=== PATIENT | female | born 1995 | race Caucasian/White ===

== ENCOUNTER → 2018-02-12 10:27 | Outpatient (POV) | payer BC, SELFPAY | PROVIDERS: Family Provider Internal Medicine Adolescent Medicine; PCP Internal Medicine Adolescent Medicine; Visit Provider Psychiatry & Neurology Neurology | DX: Z00.00 Encounter for general adult medical examination without abnormal findings (principal) ==

== ENCOUNTER → 2019-11-04 16:07 | Outpatient (POV) | payer BC, SELFPAY | PROVIDERS: PCP Internal Medicine Adolescent Medicine; Visit Provider Dermatology | DX: Z00.00 Encounter for general adult medical examination without abnormal findings (principal) ==

== ENCOUNTER 2020-05-16 09:17 | Emergency (ER) | payer BC, SELFPAY ==
[2020-05-16 09:20] VITALS: BP 116/72; PULSE 80; RESP 20; TEMP 37.1; O2SAT 97; BMI 26.1
--- NOTE | 2020-05-16 10:01 | HMH.EDUTC ---
[facility] [place] Clinical Impression: Exposure to COVID-19 virus Disposition: Home, Self-Care Condition on Discharge: Good Instructions: Preventing the Spread of Coronavirus Discharge Instructions Additional Instructions: Drink plenty of fluids. Take tylenol for pain or fever. Return if you begin to have difficulty breathing. Follow up with your regular doctor. GO TO THE ER FOR ANY WORSENING SYMPTOMS Referrals: Dotty Falk APRN [Primary Care Provider] - Time of Disposition: 10:03 Medical Decision Making - Medical Records Medical records reviewed: No: I reviewed the patient's medical records. - Gómez Inquiry Pt receiving controlled substance: No Vital Signs: 05/16/20 09:20 Temperature 98.8 F Temperature Source Oral Pulse Rate [Left Brachial] 80 Respiratory Rate 20 Blood Pressure [Left Arm] 116/72 Blood Pressure Mean [Left Arm] 86 Blood Pressure Source [Left Arm] Automatic Cuff Blood Pressure Position [Left Arm] Sitting 02 Sat by Pulse Oximetry 97 Oxygen Delivery Method Room Air [facility] [place] - General Stated complaint: covid exposure Time Seen by Provider: 05/16/20 10:01 Mode of Arrival: Ambulatory Source of Information: Patient Limitations: No Limitations Description of Symptoms (Recalled from Triage Doc. by RN): COVID TEST D/T EXPOSURE. DENIES SYMPTOMS HEENT Symptoms (Recalled from RN notes): No Resp Symptoms (Recalled from RN notes): No Skin Symptoms (Recalled from RN notes): No MS Symptoms (Recalled from RN notes): No Functional Status (Recalled from RN notes): WNL - History of Present Illness Provider Complaint: She was exposed to covid-[address] last week. She denies any symptoms but her work wanted her to be tested to be safe. - Related Data Home Medications Medication Instructions Recorded Confirmed norgestimate 0.25 mg-ethinyl 1 tab PO DAILY tab 05/21/19 05/21/19 estradiol 35 mcg tablet Allergies Allergy/AdvReac Type Severity Reaction Status Date / Time No Known Allergies Allergy Verified 05/21/19 16:06 - Worker's Comp Is this a Worker's Comp case?: No [facility] History - Hepatitis A Screen Drug use history?: No High risk sexual behaviors?: No History of sexually transmitted infection?: No Currently employed?: No Childcare worker?: No Do you have indoor plumbing?: Yes Do you have electricity?: Yes Attestation statement:: This patient has been screened for Hepatitis A risk factors. I have reviewed the patient's past medical history: Yes Comment: right wrist surgery. Lasix. Dental surgery - 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 Smoking Status: Never smoker Alcohol Intake: never Substance Use Type: denies use Occupational Status: other Housing: house Household Members: significant other Family Hx:: No significant family history ROS Obtained: Yes All systems reviewed & no additional complaints - Constitutional Constitutional: Reports system reviewed and no additional complaints, except as docu - Eyes Eyes: Reports system reviewed and no additional complaints, except as docu - ENT Ears, Nose, Mouth, and Throat: Reports system reviewed and no additional complaints, except as docu - Cardiovascular Cardiovascular: Reports system reviewed and no additional complaints, except as docu - Respiratory Respiratory: Reports system reviewed and no additional complaints, except as docu - Gastrointestinal Gastrointestingal: Reports: system reviewed and no additional complaints, except as docu Physical Exam - General General appearance: alert, in no apparent distress - Head Head exam: atraumatic, normocephalic, normal inspection - Eye Eye exam: Present: normal appearance, PERRL, EOMI - ENT ENT exam: Present: normal exam, normal oropharynx, mucous membranes moist, TM's normal bilaterally, normal external ear exam - Neck Neck exam: Present: normal inspection, full ROM, trachea midline. Absent: meningismus, lymphadenopathy - Chest C
[2020-05-16 10:07] VITALS: BP 116/72; PULSE 80; RESP 20; TEMP 37.1; O2SAT 97
== END 2020-05-16 10:10 | disposition home or self-care (01) ==
PROVIDERS: Emergency Provider Nurse Practitioner Family; PCP Nurse Practitioner Family
DX: Z20.822 Contact with and (suspected) exposure to COVID-19 (principal)
CPT/HCPCS: 99202; G0463; U0003

== ENCOUNTER → 2021-02-28 08:57 | Outpatient (CLI) | payer BC, SELFPAY ==
[2021-02-28 09:40] LABS: HCG,Quantitative 684 mIU/ml (0-5.42)
== END ==
PROVIDERS: Visit Provider Specialist
DX: Z32.00 Encounter for pregnancy test, result unknown (principal)
CPT/HCPCS: 36415; 84702

== ENCOUNTER 2023-03-03 10:03 | Emergency (ER) | payer BC, SELFPAY ==
[2023-03-03 10:15] VITALS: BP 140/80; PULSE 103; RESP 19; TEMP 36.8; O2SAT 96; BMI 28.0
[2023-03-03 10:22] LABS: Apearance,Urine Cloudy (Clear); Color,Urine Dark Yellow (Yellow); Specific Gravity, Urine 1.025 (1.005-1.030)
[2023-03-03 10:23] LABS: Bilirubin,Urine Negative (Negative); Blood, Urine 3+ (Negative); Glucose,Urine (UA) Negative (Negative); Ketones,Urine Negative (Negative); Protein,Urine 3+ (Negative); UTC Leukocyte Esterase,Urine 1+ (Negative); UTC Nitrate,Urine Negative (Negative); Urobilinogen,Urine 1 EU/dl (0.2)
--- NOTE | 2023-03-03 10:34 | EXP.UTC ---
Discharge Plan Disposition Patient Disposition: Home, Self-Care Condition: Good Prescriptions Prescriptions: New cephalexin [cephalexin] 500 mg tablet 500 mg PO BID 7 Days Qty: 14 0RF No Action [id number] 1 mg tablet 1 mg tablet 1 tab PO DAILY Referrals Follow up/Referrals: Cipriano Frias MD [Primary Care Provider] - See instructions Activity Restrictions/Add. Instructions Additional Instructions/Restrictions: Increase fluids, water and not soda or tea. Can drink cranberry juice or cranberry extract. Wipe front to back Wear cotton underwear Empty bladder after intercourse Start antibiotics immediately and make sure you take the full course although you may start to see improvement over the next 48 hours. You can eat yogurt or take probiotics to decrease diarrhea or yeast infection caused by the antibiotic Be sure to follow-up anytime for new or worsening symptoms in 48 hours for wound urine culture results be sure to let you PCP no recent urine for culture so they can request records and ensure that you have appropriate antibiotic if you are not getting better or getting worse. If symptoms worsen or do not improve return or be seen in the ER. Follow-up with primary care this week. Clinical Impressions Clinical Impression: UTI (urinary tract infection) Qualifiers: Urinary tract infection type: acute cystitis Hematuria presence: with hematuria Qualified Code(s): N30.01 - Acute cystitis with hematuria Instructions Patient Instructions: DI for Urinary Tract Infection (UTI) Discharge ED Provider[facility]Tom [facility] HPI General Stated complaint: possible uti Mode of Arrival: Ambulatory Source of Information: Patient Limitations: No Limitations Time Seen by Provider: 03/03/23 10:34 Description of Symptoms (Recalled from Triage Doc. by RN): rightside pain for 3 days, blood in urine HEENT Symptoms (Recalled from RN notes): No Resp Symptoms (Recalled from RN notes): No Skin Symptoms (Recalled from RN notes): No MS Symptoms (Recalled from RN notes): No Functional Status (Recalled from RN notes): n/a History of Present Illness Provider Complaint: 27 yr old female presents for blood in urine and rt lower abd pain for 3 days and was told by ob to come get her urine checked Related Data Home Medications Medication Instructions Recorded Confirmed [id number] 1 mg 1 tab PO DAILY vitamins 05/27/21 03/03/23 tablet Previous Rx's Medication Instructions Recorded cephalexin 500 mg tablet 500 mg PO BID 7 days #14 tabs 03/03/23 Allergies Allergy/AdvReac Type Severity Reaction Status Date / Time No Known Allergies Allergy Verified 03/03/23 10:32 Worker's Comp Is this a Worker's Comp case?: No [facility] Disclaimer: The information contained in this section may have been updated after the patient was seen, as this information can be updated by other users. 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) Smoking Status: Never smoker alcohol intake: never substance use type: denies use current occupational status: other Travel in the last 8 weeks: None household members: significant other housing: house ROS Obtained: Yes All systems reviewed & no additional complaints except as documented Constitutional Constitutional: Reports system reviewed and no additional complaints, except as documented Eyes Eyes: Reports system reviewed and no additional complaints, except as documented ENT Ears, Nose, Mouth, and Throat: Reports system reviewed and no additional complaints, except as documented Cardiovascular Cardiovascular: Reports system reviewed and no additional complaints, except as documented Respiratory Respiratory: Reports system reviewed and no additional complaints, except as documented Gastrointestinal Gastrointestingal: Reports system reviewed and no additional complaints, except as documented Genitourinary
[2023-03-03 10:45] VITALS: BP 140/80; PULSE 103; RESP 18; TEMP 36.8; O2SAT 96
== END 2023-03-03 10:44 | disposition home or self-care (01) ==
PROVIDERS: Emergency Provider Nurse Practitioner Family; PCP Family Medicine
DX: N30.01 Acute cystitis with hematuria (principal); R10.31 Right lower quadrant pain
CPT/HCPCS: 81003; 87086; 99212; 99214; G0463

== ENCOUNTER 2024-01-29 14:12 | Outpatient (CLI) | payer BC, SELFPAY ==
--- NOTE | 2024-01-29 14:18 | US_ITS ---
FINAL REPORT CLINICAL HISTORY: Abd pain-- ruq x sev days COMPARISON: None FINDINGS: Sonographic images of the right upper quadrant were obtained. The pancreas is partially obscured.The liver has an unremarkable appearance. There is a large amount of sludge present in the gallbladder. There is no evidence of biliary ductal dilatation.The common duct measures 3 mm. Images of the right kidney reveal mild hydronephrosis of uncertain chronicity. IMPRESSION: Sludge filled gallbladder without evidence of biliary ductal dilatation. Mild right hydronephrosis of uncertain chronicity. Reviewed, Interpreted and Dictated by Chad Groves MD Transcribed by Florecita Alcantar Authenticated and [facility]
== END 2024-01-29 23:59 | disposition home or self-care (01) ==
LOC: RAD 14:13
PROVIDERS: PCP Internal Medicine; Visit Provider Internal Medicine
DX: R10.9 Unspecified abdominal pain (principal)
CPT/HCPCS: 76705

== ENCOUNTER 2024-01-29 14:24 | Outpatient (CLI) | payer BC, SELFPAY ==
[2024-01-29 15:07] LABS: Alanine Aminotransferase 47 U/L (12-78); Albumin Level 4.6 g/dl (3.5-5.0); Albumin/Globulin Ratio 2.3 (1.1-1.8); Alkaline Phosphatase 66 U/L (38-126); Amylase 93 U/L (30-110); Anion Gap 8.8 mEq/L (5-15); Aspartate Amino Transferase 52 U/L (14-36); Bilirubin,Total 0.9 mg/dl (0.2-1.3); Blood Urea Nitrogen 16 mg/dl (7-17); Calcium 9.4 mg/dl (8.4-10.2); Carbon Dioxide 28 mmol/L (22.0-30.0); Chloride 102 mmol/L (98-107); Estimated Glomerular Filt Rate 87 ml/min (>60); GFR (African American) 105 ML/MIN (>60); Glucose 90 mg/dl (74-100); Lipase 428 U/L (23-300); Potassium 3.8 mmoL/L (3.5-5.1); Sodium 135 mmol/L (136-145); Total Protein,Serum 6.6 g/dl (6.3-8.2)
== END 2024-01-29 23:59 | disposition home or self-care (01) ==
LOC: LAB.DROPOF 14:25
PROVIDERS: PCP Internal Medicine; Visit Provider Internal Medicine
DX: Z00.00 Encounter for general adult medical examination without abnormal findings (principal); R10.9 Unspecified abdominal pain
CPT/HCPCS: 80053; 82150; 83690

== ENCOUNTER 2024-02-15 09:59 | Outpatient (CLI) | payer BC, SELFPAY ==
--- NOTE | 2024-02-15 10:00 | NM_ITS ---
FINAL REPORT TECHNIQUE: 8.9 mCi technetium 99 M. Rj attack were administered intravenously. Examination was augmented with 1.3 mcg of CCK. CLINICAL HISTORY: Right upper quadrant pain and nausea after eating FINDINGS: Sequential grayscale images demonstrate a normal bowel distribution of radiopharmaceutical within the liver. There is progressive accumulation of activity within the gallbladder. After CCK administration, calculated ejection fraction was 67%. Patient experienced mild discomfort with CCK administration. IMPRESSION: 1. Proper filling and function of gallbladder, as described. Authenticated and [facility]
[2024-02-15] MEDS: SODIUM CHLORIDE 0.9% 10ML SYR (RAD ONLY) 10 ML IV (10:30)
[2024-02-15] MEDS: SINCALIDE 1.3 MCG in 0.9 % SODIUM CHLORIDE 50 ML 100 MCG IV (11:30)
[2024-02-15] MEDS: ISOTOPE CHOLETECH;1 DOSE (UP TO 15 MCI) IV (11:50)
== END 2024-02-15 23:59 | disposition home or self-care (01) ==
PROVIDERS: PCP Internal Medicine; Visit Provider Nurse Practitioner Family
DX: R10.11 Right upper quadrant pain (principal); R11.0 Nausea
CPT/HCPCS: 78227; A9537; J2805

== ENCOUNTER 2025-01-15 14:26 | Outpatient (CLI) | payer OTHER, SELFPAY ==
--- OUTSIDE RECORDS SUMMARY | 2021-06-24 14:16 | XMS_ITS | Encounter Summary ---
Author Organization [facility] Address [address] [place] [id number] Care Team Providers Care Enrichment Director Name Role Phone Dotty Falk APRN Primary Care Provid er Reason for Referral * Diagnostic Imaging (Routine) - Closed Specialty Diagnoses / Procedures Referred By Contac t Referred To Contact Radiology Diagnoses Encounter for supervision of normal first in second trimester Procedures US Ob 14 + Weeks Single or First Gestation Osiris Alicia MD [address] [place] [address] Phone: tel: fax: [facility] Phone: tel: Referral ID Status Reason Start Date Expiration Date Visits Re quested Visits Authorized [id number] Closed 06/07/2021 06/07/2022 1 1 Reason for Visit * Diagnostic Imaging (Routine) - Closed Specialty Diagnoses / Procedures Referred By Contac t Referred To Contact Radiology Diagnoses Encounter for supervision of normal first in second trimester Procedures US Ob 14 + Weeks Single or First Gestation Osiris Alicia MD [address] [address] Phone: tel: fax: [facility] Phone: tel: Referral ID Status Reason Start Date Expiration Date Visits Re quested Visits Authorized [id number] Closed 06/07/2021 06/07/2022 1 1 Encounter Details Date Type Department Care Team (Latest Contact Info) Description 06/24/2021 1:16 PM EST Hospital Encounter NERY GRANGER [facility] [place] [phone] Encounter for supervision of normal first in second trimester 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 Tobacco Use Types Packs/Day Years Used Date Smoking Tobacco: Never Smokeless Tobacco: Never Alcohol Use Standard Drinks/Week Comments Not Currently 0 (1 standard drink = 0.6 oz pure alcohol) No alcohol since start of meds in June 2020 [facility] Utilities Answer Date Recorded In the past [...] things needed for daily living? No 04/05/2023 [place] Depression Scale Answer Date Recorded Retired [place] Depression Score 5 04/05/2023 Retired EPD Scale: [...] GED or equivalent No 04/05/2023 Preferred Language Solomon Islander 04/05/2023 PHQ-2 Answer Date Recorded Retired PHQ-9: [...] Description 05/21/2025 1:50 PM EST Office Visit [facility]YN [address] [facility] [address] [place] [address] Osiris Alicia MD [address]00 [facility] [address] [place], [place] [id number] documented as of this encounter Procedures Procedure [...] EST PAT NAME: RASTA ARBOLEDA MED REC#: [id number] DA: [id number] PAT GEND: F PAT TYPE: O EXAM AMPARO: [id number] REF PHYS OSIRIS ALICIA Indication ======== anatomy [...] EFW (oz) 15 oz EFW by: Hadlock ([id number]) Extended Histology Tech 5.6 mm CM 4.2 mm 17% Nicolaides [...] Heart / Thorax 3-vessel view: Appears normal 6-mydqwi-acfaouq view: Appears normal Diaphragm: Appears normal Diaphragm: [...] subsequent visit to complete the anatomic screening Appraisal Coordinator: Sara Ortez RDMS Physician: Osiris Alicia MD Electronically signed by: Osiris Alicia MD at: 08:30 Procedure Note Osiris Alicia MD - 06/26/2021 PAT NAME: RASTA ARBOLEDA MED REC#: [id number] DA: [id number] PAT GEND: F PAT TYPE: O EXAM AMPARO: [id number] REF PHYS OSIRIS ALICIA Indication ======== anatomy survey Comparison Studies There are no relevant prior studies to which this study is beingcompared Method ======= Voluson E6, Transabdominal ultrasound examination. View: Sufficient view ========= Elena . Number of fetuses: 1 Dating ====== Method of dating:based on stated EMANUEL GA by prior [id number] w + 1 d EMANUEL by prior [...] 21w 2d 44% Hadlock HC / AC1.24 VJL208 g EFW (lb)0 lb EFW (oz)15 oz EFW by:Hadlock ([id number]) Extended Vp5.6 mm CM4.2 mm 17% Nicolaides Extremities / Bony Struc FL / BPD0.67 FL / HC0.18 FL / AC0.22 Other Structures [id number] bpm Anatomy Cranium:Appears normal Lateral ventricles:Appears normal Choroid plexus:Appears normal Midline falx:Appears normal Cavum septi pellucidi:Appears normal Cerebellum:Appears normal Cisterna magna:Appears normal Lips:Appear normal Profile:Appears normal Nose:Appears normal 4-chamber view:Appears normal RVOT view:Appears normal LVOT view:Appears normal Heart / Thorax 3-vessel view:Appears normal 4-ppgjyq-qqdpide view:Appears normal Diaphragm:Appears normal Diaphragm:Intact Cord insertion:Appears [...] a subsequent visit tocomplete the anatomic screening Appraisal Coordinator: Sara Ortez RDMS Physician: Osiris Alicia MD [...] documented as of this encounter Care Teams Enrichment Director Relationship Specialty Start Date End Date Dotty Falk APRN [address] [place] [facility] [address] [facility] [place] [address] PCP - General Family Medicine 10/13/16 07/25/22 documented as of this encounter
--- OUTSIDE RECORDS SUMMARY | 2021-07-22 08:27 | XMS_ITS | Encounter Summary ---
Author Organization [facility] Address [address] [place] [id number] Care Team Providers Care Student Services Dean Name Role Phone Dotty Falk APRN Primary Care Provid er Reason for Referral * Diagnostic Imaging (Routine) - Closed Specialty Diagnoses / Procedures Referred By Contac t Referred To Contact Radiology Diagnoses Encounter for supervision of normal first in second trimester Procedures US Ob Follow Up Transabdominal Approach Osiris Alicia MD [address] [place] [address] Phone: tel: fax: [facility] Phone: tel: Referral ID Status Reason Start Date Expiration Date Visits Re quested Visits Authorized [id number] Closed 06/24/2021 06/24/2022 1 1 Reason for Visit * Diagnostic Imaging (Routine) - Closed Specialty Diagnoses / Procedures Referred By Contac t Referred To Contact Radiology Diagnoses Encounter for supervision of normal first in second trimester Procedures US Ob Follow Up Transabdominal Approach Osiris Alicia MD [address] [place] [address] Phone: tel: fax: [facility] Phone: tel: Referral ID Status Reason Start Date Expiration Date Visits Re quested Visits Authorized [id number] Closed 06/24/2021 06/24/2022 1 1 Encounter Details Date Type Department Care Team (Latest Contact Info) Description 07/22/2021 8:27 AM EDT Hospital Encounter NERY GRANGER [facility] [place] [phone] Encounter for supervision of normal first in second trimester 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 Tobacco Use Types Packs/Day Years Used Date Smoking Tobacco: Never Smokeless Tobacco: Never Alcohol Use Standard Drinks/Week Comments Not Currently 0 (1 standard drink = 0.6 oz pure alcohol) No alcohol since start of meds in June 2020 [facility] Utilities Answer Date Recorded In the past [...] things needed for daily living? No 04/05/2023 [place] Depression Scale Answer Date Recorded Retired [place] Depression Score 5 04/05/2023 Retired EPD Scale: [...] GED or equivalent No 04/05/2023 Preferred Language Trinidadian 04/05/2023 PHQ-2 Answer Date Recorded Retired PHQ-9: [...] Description 05/21/2025 1:50 PM EST Office Visit [facility] [address] [facility] [address] [place] [address] Osiris Alicia MD [address] [facility] [address] [place] [address] documented as of this encounter Procedures Procedure [...] EDT PAT NAME: RASTA ARBOLEDA MED REC#: [id number] DA: [id number] PAT GEND: F PAT TYPE: O EXAM WILNER: [id number] REF PHYS OSIRIS ALICIA Indication ======== Follow-up [...] GA 25 w + 1 d Assigned EMAUNEL: 11/03/2021 length 280 d General Evaluation Cardiac [...] complete. Recommendation Follow-up scan as clinically indicated Checkout Operator: Aline Russell RDMS Physician: Osiris Alicia MD Electronically signed by: Osiris Alicia MD at: 18:15 Procedure Note Osiris Alicia MD - 07/22/2021 PAT NAME: GRAHAM ARBOLEDAA [facility] REC#: [id number] DA: [id number] PAT GEND: F PAT TYPE: O EXAM WILNER: [id number] REF PHYS OSIRIS ALICIA Indication ======== Follow-up [...] GA25 w + 1 d Assigned EMANUEL:11/03/2021 [id number] d General Evaluation Cardiac activity present. FHR [...] complete. Recommendation Follow-up scan as clinically indicated Checkout Operator: Aline Russell RDMS Physician: Osiris Alicia MD [...] documented as of this encounter Care Teams Student Services Dean Relationship Specialty Start Date End Date Dotty Falk APRN [address] [place] [address] [place] [address] [place] [address] PCP - General Family Medicine 10/13/16 07/25/22 documented as of this encounter
--- OUTSIDE RECORDS SUMMARY | 2022-09-04 09:26 | XMS_ITS | Encounter Summary ---
Author Organization [facility] Address [address] [place] [id number] Care Team Providers Care Paper Sorter And Counter Name Role Phone Cipriano Frias MD Primary Care Provider [phone] Reason for Referral * Diagnostic Imaging (Routine) - Closed Specialty Diagnoses / Procedures Referred By Contac t Referred To Contact Radiology Diagnoses Encounter to determine viability of , single or unspecified fetus Procedures US OB Transvaginal Osiris Alicia MD [address] [place] [address] Phone: tel: fax: [facility] Phone: tel: Referral ID Status Reason Start Date Expiration Date Visits Re quested Visits Authorized [id number] Closed 08/30/2022 08/30/2023 1 1 Reason for Visit * Diagnostic Imaging (Routine) - Closed Specialty Diagnoses / Procedures Referred By Contac t Referred To Contact Radiology Diagnoses Encounter to determine viability of , single or unspecified fetus Procedures US OB Transvaginal Osiris Alicia MD [address] [facility] [place] [address] Phone: tel: fax: [facility] Phone: tel: Referral ID Status Reason Start Date Expiration Date Visits Re quested Visits Authorized [id number] Closed 08/30/2022 08/30/2023 1 1 Encounter Details Date Type Department Care Team (Latest Contact Info) Description 09/04/2022 9:26 AM EDT Hospital Encounter [facility] [place] [phone] Encounter to determine viability of , single or unspecified fetus 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 Tobacco Use Types Packs/Day Years Used Date Smoking Tobacco: Never Smokeless Tobacco: Never Alcohol Use Standard Drinks/Week Comments Not Currently 0 (1 standard drink = 0.6 oz pure alcohol) No alcohol since start of meds in June 2020 [facility] Utilities Answer Date Recorded In the past 12 months has th e [employer], gas, oil, or water [employer] threatened to shut off services in your [...] things needed for daily living? No 04/05/2023 [place] Depression Scale Answer Date Recorded Retired [place] Depression Score 5 04/05/2023 Retired EPD Scale: [...] GED or equivalent No 04/05/2023 Preferred Language Kuwaiti 04/05/2023 PHQ-2 Answer Date Recorded Retired PHQ-9: [...] Description 05/21/2025 1:50 PM EST Office Visit [facility] [address] [facility] [address] [place] [phone] Osiris Alicia MD [address] [address] documented as of this encounter Procedures Procedure Name Priority Date/Time Associated Diagnosis Comments US OB TRANSVAGINAL Routine 09/04/2022 9: 44 AM EDT Encounter to determine viability of , single or unspecified fetus documented in this encounter Results * US Ob Transvaginal (09/04/2022 9:44 AM EDT) Anatomical Region Laterality Modality Body Ultrasound 09/04/2022 9:31 AM EDT Narrative 09/05/2022 7:29 AM EDT PAT NAME: RASTA ARBOLEDA MED REC#: [id number] DA: [id number] PAT GEND: F PAT TYPE: O EXAM WILNER: [id number] REF PHYS OSIRIS ALICIA Indication ======== viability Comparison Studies There are no relevant prior studies to which this study is being compared History ====== Previous Outcomes 2 Para 1 Method ======= Transvaginal ultrasound examination, Voluson E6. View: Adequate view ========= Elena . Number of fetuses: 1 Single intrauterine present Dating ====== Method of dating: based on the LMP LMP on: 07/05/2022 GA by LMP 8 w + 5 d EMANUEL by LMP: 04/11/2023 Ultrasound examination on: 09/04/2022 GA by U/S based upon: CRL GA by U/S 8 w + 2 d EMANUEL by U/S: 04/14/2023 Assigned: based on the LMP, selected on 09/04/2022 Assigned GA 8 w + 5 d Assigned EMANUEL: 04/11/2023 length 280 d Assessment Gestational sac: visualized Location: intrauterine Yolk sac: visualized Embryo: visualized CRL 18.0 mm 8w 2d 16% Hadlock Cardiac activity: present FHR 161 bpm Placenta: Too early to evaluate Maternal Structures Uterus / Cervix Uterus: Visualized Cervix: Visualized Ovaries / Tubes / Adnexa Rt ovary: Visualized Lt ovary: Visualized Lt ovarian corpus luteum: a well circumscribed unilocular cyst with peripheral Doppler flow is present - typical of a corpus luteum Impression ========= Single viable intrauterine with normal cardiac activity and biometry consistent with clinical dates Recommendation Follow-up as clinically indicated. Cosmetic Assembler: Aline Russell RDMS Physician: Osiris Alicia MD Electronically signed by: Osiris Alicia MD at: 07:29 Procedure Note Osiris Alicia MD - 09/05/2022 PAT NAME: RASTA ARBOLEDA MED REC#: [id number] DA: [id number] PAT GEND: F PAT TYPE: O EXAM WILNER: [id number] REF PHYS OSIRIS ALICIA Indication ======== viability Comparison Studies There are no relevant prior studies to which this study is beingcompared History ====== Previous Outcomes Gravida2 Para1 Method ======= Transvaginal ultrasound examination, Voluson E6. View: Adequate view ========= Elena . Number of fetuses: 1 Single intrauterine present Dating ====== Method of dating:based on the LMP LMP on:07/05/2022 GA by LMP8 w + 5 d EMANUEL by LMP:04/11/2023 Ultrasound examination on:09/04/2022 GA by U/S based upon:CRL GA by U/S8 w + 2 d EMANUEL by U/S:04/14/2023 Assigned:based on the LMP, selected on 09/04/2022 Assigned GA8 w + 5 d Assigned EMANUEL:04/11/2023 d Assessment Gestational sac:visualized Location:intrauterine Yolk sac:visualized Embryo:visualized CRL18.0 mm 8w 2d 16% Hadlock Cardiac activity:present SWP238 bpm Placenta:Too early to evaluate Maternal Structures Uterus / Cervix Uterus:Visualized Cervix:Visualized Ovaries / Tubes / Adnexa Rt ovary:Visualized Lt ovary:Visualized Lt ovarian corpus luteum:a well circumscribed unilocular cyst withperipheral Doppler flow is present - typical of a corpus luteum Impression ========= Single viable intrauterine with normal cardiac activity andbiometry consistent with clinical dates Recommendation Follow-up as clinically indicated. Cosmetic Assembler: Aline Russell RDMS Physician: Osiris Alicia MD Electronically signed by: Osiris Alicia MD at: 07:29 us Osiris Alicia MD IMG US ORDERABLES Final Re sult documented in this encounter Visit Diagnoses Diagnosis Encounter to determine viability of , single or unspecified fetus documented in this encounter Care Teams Paper Sorter And Counter Relationship Specialty Start Date End Date Cipriano Frias MD [address] [place] [address] PCP - General Family Medicine 07/26/22 02/03/24 documented as of this encounter
--- OUTSIDE RECORDS SUMMARY | 2022-11-23 13:21 | XMS_ITS | Encounter Summary ---
Author Organization [facility] Address [address] [place] [address] Care Team Providers Care Push Bench Operator Helper Name Role Phone Cipriano Frias MD Primary Care Provider [phone] Reason for Referral * Diagnostic Imaging (Routine) - Closed Specialty Diagnoses / Procedures Referred By Contac t Referred To Contact Radiology Diagnoses 16 weeks gestation of Procedures US Ob 14 + Weeks Single or First Gestation Eren Sauceda CNM [address] [place] [address] Phone: tel: fax: [facility] Phone: tel: Referral ID Status Reason Start Date Expiration Date Visits Re quested Visits Authorized [id number] Closed 10/26/2022 10/26/2023 1 1 Reason for Visit * Diagnostic Imaging (Routine) - Closed Specialty Diagnoses / Procedures Referred By Contac t Referred To Contact Radiology Diagnoses 16 weeks gestation of Procedures US Ob 14 + Weeks Single or First Gestation Eren Sauceda CNM [address] [facility] [address] [place], [place] [address] Phone: tel: fax: [facility] Phone: tel: Referral ID Status Reason Start Date Expiration Date Visits Re quested Visits Authorized [id number] Closed 10/26/2022 10/26/2023 1 1 Encounter Details Date Type Department Care Team (Latest Contact Info) Description 11/23/2022 1:21 PM EDT Hospital Encounter [facility] [place] [phone] 16 weeks gestation of 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 Tobacco Use Types Packs/Day Years Used Date Smoking Tobacco: Never Smokeless Tobacco: Never Alcohol Use Standard Drinks/Week Comments Not Currently 0 (1 standard drink = 0.6 oz pure alcohol) No alcohol since start of meds in June 2020 [facility] Utilities Answer Date Recorded In the past 12 months has th e [employer], gas, oil, or water [employer] threatened to shut off services in your [...] things needed for daily living? No 04/05/2023 [place] Depression Scale Answer Date Recorded Retired [place] Depression Score 5 04/05/2023 Retired EPD Scale: [...] GED or equivalent No 04/05/2023 Preferred Language Vietnamese 04/05/2023 PHQ-2 Answer Date Recorded Retired PHQ-9: [...] Description 05/21/2025 1:50 PM EST Office Visit [facility] OBGYN [address] [facility] [address] [place] [address] [phone] Toro Valdez MD [address] [facility] [address] [place] [address] documented as of this encounter Procedures Procedure [...] EDT PAT NAME: RASTA ARBOLEDA MED REC#: [id number] DA: [id number] PAT GEND: F PAT TYPE: O EXAM AMPARO: [id number] REF PHYS EREN SAUCEDA Indication ======== anatomy [...] EFW (oz) 10 oz EFW by: Hadlock ([id number]-TZ-HO-FL) Head / Face / Neck Cephalic index [...] Heart / Thorax 3-vessel view: Appears normal 4-qequnl-ueesebo view: Appears normal Diaphragm: Appears normal Diaphragm: [...] subsequent visit to complete the anatomic screening. Supervisor Detasseling Crew: Vida Posadas RDMA Physician: Toro Valdez MD Electronically signed by: Toro Valdez MD at: 09:41 Procedure Note Toro Valdez MD - 11/24/2022 PAT NAME: ARBOLEDARASTA MED REC#: [id number] DA: [id number] PAT GEND: F PAT TYPE: O EXAM AMPARO: [id number] REF PHYS EREN SAUCEDA Indication ======== anatomy survey Comparison Studies There are no relevant prior studies to which this study is beingcompared History ====== Previous Outcomes Gravida2 Para1 Method ======= Voluson E6, Transabdominal ultrasound examination. View: Sufficient view ========= Elena . Number of fetuses: 1 Dating ====== LMP on:07/05/2022 GA by LMP20 w + 1 d EMANUEL by LMP:04/11/2023 GA by prior [email or web address] w + 1 d EMANUEL by prior [...] GA20 w + 1 d Assigned EMANUEL:04/11/2023 [email or web address] d General Evaluation Cardiac activity present. FHR [...] 10% Hadlock HC / AC1.18 62% Hadlock ASW878 g EFW (lb)0 lb EFW (oz)10 oz EFW by:Hadlock (JOA-VH-CD-FL) Head / Face / Neck Cephalic index0.70 <1% Nicolaides Extremities / Bony Struc FL / BPD0.69 37% Hadlock FL / HC0.18 24% Hadlock FL / AC0.21 22% Hadlock Other Structures BQN264 bpm Anatomy Cranium:Appears normal Lateral ventricles:Appears normal Choroid plexus:Appears normal Midline falx:Appears normal Cavum septi pellucidi:Appears normal Cerebellum:Appears normal Cisterna magna:Appears normal Lips:Appear normal Profile:Appears normal Nose:Appears normal 4-chamber view:Appears normal RVOT view:Appears normal LVOT view:Appears normal Heart / Thorax 3-vessel view:Appears normal 2-rwqeva-hapwqva view:Appears normal Diaphragm:Appears normal Diaphragm:Intact Cord insertion:Appears [...] a subsequent visit tocomplete the anatomic screening. Supervisor Detasseling Crew: Vida Posadas RDMS Physician: Toro Valdez MD Electronically signed by: Toro Valdez MD at: 09:41 Eren Sauceda [facility] US ORDERABLES Final Resul t documented in this encounter Visit Diagnoses Diagnosis 16 weeks gestation of documented in this encounter Care Teams Push Bench Operator Helper Relationship Specialty Start Date End Date Cipriano Frias MD [address] [place] [phone] PCP - General Family Medicine 07/26/22 02/03/24 documented as of this encounter
--- OUTSIDE RECORDS SUMMARY | 2022-12-21 11:43 | XMS_ITS | Encounter Summary ---
Author Organization [facility] Address [address] [place] [address] Care Team Providers Care Crystalizer Name Role Phone Cipriano Frias MD Primary Care Provider [phone] Reason for Referral * Diagnostic Imaging (Routine) - Closed Specialty Diagnoses / Procedures Referred By Contac t Referred To Contact Radiology Diagnoses care, subsequent in second trimester Procedures US Ob Follow Up Transabdominal Approach Osiris Alicia MD [address] [place] [address] Phone: tel: fax: Referral ID Status Reason Start Date Expiration Date Visits Re quested Visits Authorized [id number] Closed 11/23/2022 11/23/2023 1 1 Reason for Visit * Diagnostic Imaging (Routine) - Closed Specialty Diagnoses / Procedures Referred By Contac t Referred To Contact Radiology Diagnoses care, subsequent in second trimester Procedures US Ob Follow Up Transabdominal Approach Osiris Alicia MD [address] [place] [address] Phone: tel: fax: Referral ID Status Reason Start Date Expiration Date Visits Re quested Visits Authorized [id number] Closed 11/23/2022 11/23/2023 1 1 Encounter Details Date Type Department Care Team (Latest Contact Info) Description 12/21/2022 11:43 AM EDT Hospital Encounter [facility] [phone] care, subsequent in second trimester 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 Tobacco Use Types Packs/Day Years Used Date Smoking Tobacco: Never Smokeless Tobacco: Never Alcohol Use Standard Drinks/Week Comments Not Currently 0 (1 standard drink = 0.6 oz pure alcohol) No alcohol since start of meds in June 2020 [facility] Utilities Answer Date Recorded In the [...] things needed for daily living? No 04/05/2023 [place] Depression Scale Answer Date Recorded Retired [place] Depression Score 5 04/05/2023 Retired EPD Scale: [...] GED or equivalent No 04/05/2023 Preferred Language Emirati 04/05/2023 PHQ-2 Answer Date Recorded Retired PHQ-9: [...] Description 05/21/2025 1:50 PM EST Office Visit [facility]YN [address] [facility] [address] [place] [address] Osiris Alicia MD [address] [facility] [address] [place] [phone] documented as of this encounter Procedures Procedure Name Priority Date/Time Associated Diagnosis Comments US OB FOLLOW UP TRANSABDOMINAL APPROACH Routine 12/21/2022 12:02 PM EDT care, subsequent in second trimester documented in this encounter Results * US Ob Follow Up Transabdominal Approach (12/21/2022 12:02 PM EDT) Anatomical Region Laterality Modality Body Ultrasound 12/21/2022 11:5 4 AM EDT Narrative 12/22/2022 7:16 AM EDT PAT NAME: RASTA LUJAN MED REC#: [id number] DA: [id number] PAT GEND: F PAT TYPE: O EXAM AMPARO: [id number] REF PHYS OSIRIS ALICIA Indication ======== Follow-up evaluation for anatomy scan due to position Comparison Studies There are no relevant prior studies to which this study is being compared History ====== Previous Outcomes 2 Para 1 Method ======= Voluson E6, Transabdominal ultrasound examination. View: Adequate view ========= Elena . Number of fetuses: 1 Dating ====== LMP on: 07/05/2022 GA by LMP 24 w + 1 d EMANUEL by LMP: 04/11/2023 Method of dating: Restore dating from previous exam Previous dating: based on the LMP, selected on 09/04/2022 Agreed EMANUEL of previous datin04/11/2023 Assigned: based on the LMP, selected on 09/04/2022 Assigned GA 24 w + 1 d Assigned EMANUEL: 04/11/2023 length 280 d General Evaluation Cardiac activity present. FHR 145 bpm. movements visualized. Presentation transverse. Placenta Placental site: anterior. Amniotic fluid Amount of AF: normal. Anatomy Lateral ventricles: Appears normal 4-chamber view: Appears normal Stomach: Appears normal Kidneys: Appears normal Bladder: Appears normal Cervical spine: Appears normal Thoracic spine: Appears normal Lumbar spine: Appears normal Sacral spine: Appears normal Gender: male Wants to know gender: yes Impression ========= No structural abnormalities are seen on today's scan. Anatomic survey is now complete. Recommendation Follow-up scan as clinically indicated. Content Curator: Aline Russell RDMS Physician: Osiris Alicia MD Electronically signed by: Osiris Alicia MD at: 07:16 Procedure Note Osiris Alicia MD - 12/22/2022 PAT NAME: RASTA LUJAN MED REC#: [id number] DA: [id number] PAT GEND: F PAT TYPE: O EXAM AMPARO: [id number] REF PHYS OSIRIS ALICIA Indication ======== Follow-up evaluation for anatomy scan due to position Comparison Studies There are no relevant prior studies to which this study is beingcompared History ====== Previous Outcomes Gravida2 Para1 Method ======= Voluson E6, Transabdominal ultrasound examination. View: Adequate view ========= Elena . Number of fetuses: 1 Dating ====== LMP on:07/05/2022 GA by LMP24 w + 1 d EMANUEL by LMP:04/11/2023 Method of dating:Restore dating from previous exam Previous dating:based on the LMP, selected on 09/04/2022 Agreed EMANUEL of previous datin04/11/2023 Assigned:based on the LMP, selected on 09/04/2022 Assigned GA24 w + 1 d Assigned EMANUEL:04/11/2023 [id number] d General Evaluation Cardiac activity present. FHR 145 bpm. movements visualized. Presentation transverse. Placenta Placental site: anterior. Amniotic fluid Amount of AF: normal. Anatomy Lateral ventricles:Appears normal 4-chamber view:Appears normal Stomach:Appears normal Kidneys:Appears normal Bladder:Appears normal Cervical spine:Appears normal Thoracic spine:Appears normal Lumbar spine:Appears normal Sacral spine:Appears normal Gender:male Wants to know gender:yes Impression ========= No structural abnormalities are seen on today's scan. Anatomicsurvey is now complete. Recommendation Follow-up scan as clinically indicated. Content Curator: Aline Russell RDKY Physician: Osiris Alicia MD Electronically signed by: Osiris Alicia MD at: 07:16 us Osiris Alicia MD IMG US ORDERABLES Final Re sult documented in this encounter Visit Diagnoses Diagnosis care, subsequent in second trimester documented in this encounter Care Teams Crystalizer Relationship Specialty Start Date End Date Cipriano Frias MD [address] [place] [address] PCP - General Family Medicine 07/26/22 02/03/24 documented as of this encounter
--- OUTSIDE RECORDS SUMMARY | 2024-09-29 11:18 | XMS_ITS | Encounter Summary ---
[facility] [address] [place] [address] Care Team Providers Care Repairer General Name Role Phone Vignesh Strickland DO Primary Care Provider + Reason for Referral * Diagnostic Imaging (Routine) - Closed Specialty Diagnoses / Procedures Referred By Contact Referred To Contact Obstetrics and Gynecology Diagnoses Bloating Procedures US Non-ob Transvaginal Osiris Alicia MD [address] [place] [address] Phone: tel: fax: [facility] O[facility]YN [address] [address] Phone: tel: fax: Referral ID Status Reason Start Date Expiration Date Visits Re quested Visits Authorized [id number] Closed 09/23/2024 12/23/2025 1 1 Reason for Visit * Diagnostic Imaging (Routine) - Closed Specialty Diagnoses / Procedures Referred By Contact Referred To Contact Obstetrics and Gynecology Diagnoses Bloating Procedures US Non-ob Transvaginal Osiris Alicia MD [address] [place] [address] Phone: tel: fax: [facility] O[facility] [address] [address] Phone: tel: fax: Referral ID Status Reason Start Date Expiration Date Visits Re quested Visits Authorized [id number] Closed 09/23/2024 12/23/2025 1 1 Encounter Details Date Type Department Care Team (Mira kelly Contact Info) Description 09/29/2024 11:18 AM EDT Hospital Encounter [facility] [place] [phone] Bloating 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 Tobacco Use Types Packs/Day Years Used Date Smoking Tobacco: Never Smokeless Tobacco: Never Alcohol Use Standard Drinks/Week Comments Not Currently 0 (1 standard drink = 0.6 oz pure alcohol) No alcohol since start of meds in June 2020 [facility] Utilities Answer Date Recorded In the [...] things needed for daily living? No 04/05/2023 [place] Depression Scale Answer Date Recorded Retired [place] Depression Score 5 04/05/2023 Retired EPD Scale: [...] GED or equivalent No 04/05/2023 Preferred Language Saudi Arabian 04/05/2023 PHQ-2 Answer Date Recorded Retired PHQ-9: [...] 05/21/2025 1:50 PM EST Office Visit [facility] [address] [facility] [address] [place] [address] Osiris Alicia MD [address] [facility] [address] [place] [address] documented as of this encounter Procedures Procedure Name Priority Date/Time Associated Diagnosis Comments US NON-OB TRANSVAGINAL Routine 09/29/2024 11:58 AM EDT Bloating documented in this encounter Results * US Non-ob Transvaginal (09/29/2024 11:58 AM EDT) Anatomical Region Laterality Modality Body Ultrasound 09/29/2024 11:4 9 AM EDT Narrative 10/02/2024 1:12 PM EDT PAT NAME: RASTA ARBOLEDA MED REC#: [id number] DA: [id number] PAT GEND: F PAT TYPE: O EXAM AMPARO: [id number] REF PHYS OSIRIS ALICIA Indication ======== Bloating [...] pelvic ultrasound Recommendation Follow-up as clinically indicated. Pediatric Radiologist: Vida Posadas RDMS Physician: Osiris Alicia MD Electronically signed by: Osiris Alicia MD at: 13:12 Procedure Note Osiris Alicia MD - 10/02/2024 PAT NAME: RASTA ARBOLEDA MED REC#: [id number] DA: [id number] PAT GEND: F PAT TYPE: O EXAM AMPARO: [id number] REF PHYS OSIRIS ALICIA Indication ======== Bloating [...] Vol45.4 cm Endometrial thickness, total3.2 mm Cervical ebkdle91.0 mm Right Ovary Rt ovary:Normal Rt ovary D134.7 mm Rt ovary D215.9 mm Rt ovary D314.5 mm Rt ovary Vol4.2 cm Left Ovary ========= Lt ovary:Normal Lt ovary D138.0 mm Lt ovary D216.4 mm Lt ovary D320.00 mm Lt ovary Vol6.5 cm Cul de Sac ========= Visualized. Free fluid visualized: mild Impression ========= Normal pelvic ultrasound Recommendation Follow-up as clinically indicated. Pediatric Radiologist: Vida Posadas RDMS Physician: Osiris Alicia MD Electronically signed by: Osiris Alicia MD at: 13:12 us Osiris Alicia MD IMG US ORDERABLES Final Re sult documented in this encounter Visit Diagnoses Diagnosis Bloating Flatulence, eructation, and gas pain documented in this encounter Care Teams Repairer General Relationship Specialty Start Date End Date Vignesh Strickland DO [address] [place] [address] PCP - General Internal Medicine 02/04/24 documented as of this encounter
--- OUTSIDE RECORDS SUMMARY | 2025-01-15 14:28 | XMS_ITS | Encounter Summary ---
[facility] [address] [place] [id number] Care Team Providers Care Asbestos Removal Worker Name Role Phone Vignesh Stricklandel Primary Care Provider + Reason for Visit * Reason Comments Med Refill Encounter Details Date Type Department Care Team (Late st Contact Info) Description 01/24/2021 Refill [facility] O[facility]YN [address] [place] [address] Liliam Foy, FERMENTER HELPER [address] [facility] [address] [place] [address] 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 Tobacco Use Types Packs/Day Years Used Date Smoking Tobacco: Never Smokeless Tobacco: Never Alcohol Use Standard Drinks/Week Comments Not Currently 0 (1 standard drink = 0.6 oz pure alcohol) No alcohol since start of meds in June 2020 Comments No Sex and Gender Information Value Date Recorded Sex Assigned at Not on file Legal Sex Female 11:45 AM EDT Gender Identity Not on file Sexual Orientation Not on file documented as of this encounter Miscellaneous Notes * Telephone Encounter - Landy Banda RegSched Rep - 01/24/2021 8:45 AM EDT Patient left a message on Sunday. Someone returned her phone call but she missed it. Can you pleasecall back today? documented in this encounter Plan of Treatment Upcoming Encounters Date Type Department Care Team (Late st Contact Info) Description 05/21/2025 1:50 PM EST Office Visit [facility] [address] [facility] [address] [place] [address] Toro Valdez MD 1700 [facility] [address] [place] [address] documented as of this encounter Visit Diagnoses Not on filedocumented in this encounter Additional Health Concerns Infection Onset Date Last Indicated Resolved Time COVID Screen (preop/placement) 10/20/2021 10/24/2021 10/24/2021 11:20 PM EDT documented as of this encounter Care Teams Asbestos Removal Worker Relationship Specialty Start Date End Date Vignesh Strickland DO [address] [place] [address] PCP - General Internal Medicine 02/04/24 documented as of this encounter
--- OUTSIDE RECORDS SUMMARY | 2025-01-15 14:28 | XMS_ITS | Clinical Summary ---
Author Organization [facility] Address [address] [place] [address] Care Team Providers Care Purchasing Engineer Name Role Phone Marco A Vignesh Papo Primary Care Provider + Allergies No known active allergies Medications hydrOXYzine (ATARAX) 50 MG tablet Take 1 tablet by mouth Every Night. 30 tablet 2 08/16/2023 Active norgestimate-eth inyl estradiol (Tri-Linyah) 0.18/0.215/0.25 MG-35 MCG per tablet Take 1 tablet by mouth Daily. 84 tablet 4 05/20/2024 Active escitalopram (Lexapro) 10 MG tablet Take 1 tablet by mouth Daily. 90 tablet 4 05/20/2024 Active Active Problems Problem Noted Date Diagnosed Date anxiety 03/30/2023 Annual LEHR OPERATOR exam 02/08/2020 Overview (05/21/2023): SCREENING TESTS Year 2017 2018 2019 2019 2020 2021 2022 2023 2024 2025 2026 2027 2028 2029 2030 2031 2032 2033 2034 2035 Age PAP 10 1 HPV high risk VIRGILIO [Birads] ANN (5 year) Crystal Mar (lifetime) Colonoscopy DEXA [T-score] Frax [hip/any] Lipids [LDL / HDL / TG] Vitamin D TSH Enter the month test was performed. 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 Other info: Resolved Problems Problem Noted Date Diagnosed Date Resolved Date anemia 04/06/2023 05/18/2023 care following 04/05/23 - Kavon 3 05/18/2023 GBS (+) 03/26/2023 04/05/2023 Encounter for elective induc tion of labor 03/06 @ 06:00 03/19/2023 04/05/2023 Third trimester 03/15/2023 Vomiting 03/12/2023 Threatened labor, third trimester 03/07/2023 03/07/2023 care, subsequent pr egnancy in third trimester 09/03/2022 04/05/2023 Overview (02/12/2023): gender: male classes discussed: 02/01/23 Circumcision (y / n / na): yes Pipeline Systems Operator: Service Baby's name: Kavon Breast/bottle feeding: breast Placental location: anterior Postdates discussed: Tdap discussed: 11/23/22 Tdap vaccine received: 02/07/2023 Flu vaccine discussed: 12/21/22 Flu vaccine received: 02/07/2023 Covid vaccine discussed: Covid vaccine received: Rh (-) 09/03/2022 04/06/2023 Overview (02/01/2023): Rhogam given on 01/18 @ 28w1d Nuchal cord affecting delivery 10/25/2021 10/25/2021 care following 10/25/21 - Archie 10/25/2021 12/06/2021 38 weeks gestation of 10/24/2021 10/25/2021 09/26/2021 10/03/2021 Failed GCT 08/19/2021 08/19/2021 COVID-19 affecting in second trimester 06/07/2021 07/22/2021 Rh (-) 04/13/2021 10/25/2021 Overview (09/15/2021): Rhogam given on 05/26/2021 @ 17w0d Rhogam given on 09/15/21 @ 33w0d Encounter for supervision of normal first in third trimester 04/10/2021 10/25/2021 Overview (10/13/2021): gender: boy classes discussed: 07/22/21 Circumcision (y / n / na): yes Pipeline Systems Operator: Baby's name: Archie Breast/bottle feeding: breast Placental location: anterior Postdates discussed: 10/13/21 Tdap discussed: 09/15/21 Tdap vaccine received: Flu vaccine discussed: 04/13/21 Flu vaccine received: yes Covid vaccine discussed: 04/13/21 Covid vaccine received: Yes Amenorrhea 07/16/2020 04/10/2021 PCOS (polycystic ovarian syndrome) 07/16/2020 04/10/2021 Encounters Date Type Department Care Team Description 10/15/2024 Results Follow-Up [facility] 1700 [facility] [address] [place] [phone] Osiris Alicia MD from Last 3 Months Immunizations Immunization Administration Dates Next Due COVID-19 (MODERNA) 1st,2nd,3 rd Dose Monovalent 04/20/2021,06/09/2020,05/12/2020 DTaP, Unspecified 11/12/1998,01/25/1998 Flu Vaccine Split Quad 04/20/2021 Fluzone (or Fluarix & Flulav al for VFC) >6mos 02/07/2023 Influenza, Unspecified 02/12/2024 Rho (D) Immune Globulin 01/18/2023,10/26,09/15/2021,2021 Tdap 02/07/2023 Family History Medical History Relation Name Comments No Known Problems Brother No Known Problems Father Cancer Maternal Grandfather throat Breast cancer Maternal Grandmother Pat Stidam No Known Problems Mother Relation Name Status Comments Brother Alive Father Alive Maternal Grandfather Maternal Grandmother Pat Stidam Alive Mother Alive 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 Tobacco Use Types Packs/Day Years Used Date Smoking Tobacco: Never Smokeless Tobacco: Never Tobacco Cessation:Counseling Given: Not Answered Alcohol Use Standard Drinks/Week Comments Not Currently 0 (1 standard drink = 0.6 oz pure alcohol) No alcohol since start of meds in June 2020 [facility] Utilities Answer Date Recorded In [...] things needed for daily living? No 04/05/2023 [place] Depression Scale Answer Date Recorded Retired [place] Depression Score 5 04/05/2023 Retired EPD Scale: [...] GED or equivalent No 04/05/2023 Preferred Language Austrian 04/05/2023 PHQ-2 Answer Date Recorded Retired PHQ-9: [...] on file Sexual Orientation Not on file Last Filed Vital Signs Vital Sign Reading Time Taken Comments Blood Pressure 118/72 05/20/2024 10:19 AM EST Pulse 71 04/07/2023 7:11 AM EST Temperature 36.8 C (98.2 F) 04/07/2023 7:11 AM EST Respiratory Rate 14 05/20/2024 10:19 AM EST Oxygen Saturation 98% 03/08/2023 9:37 PM EST Inhaled Oxygen Concentration - - Weight 71.7 kg (158 lb) 05/20/2024 10:19 AM EST Height 162.6 cm (5' 4 ) 04/05/2023 6:48 AM EST Body Mass Index 27.12 04/05/2023 6:48 AM EST Plan of Treatment Upcoming Encounters Date Type Department Care Team (Late st Contact Info) Description 05/21/2025 1:50 PM EST Office Visit [facility] [address] [facility] [address] [place] [phone] Osiris Alicia MD [address] [facility] [address] [place] [address] Health Maintenance Due Date Last Done Comments ANNUAL PHYSICAL 10/13/2016 INFLUENZA VACCINE 11/28/2024 02/12/2024, 02/07/2023, 04/20/2021 Annual Gynecologic Pelvic and Breast Exam 05/21/2025 05/20/2024 PAP SMEAR 05/18/2026 05/18/2023, 02/13/2020, 10/28/2018 TDAP/TD VACCINES (2 - Td or Tdap) 02/07/2033 02/07/2023 HEPATITIS C SCREENING Completed 09/04/2022 , 04/13/2021 CHLAMYDIA SCREENING Discontinued 05/18/2023, 09/04/2022, 04/13/2021 Pneumococcal Vaccine 0-49 Aged Out No longer eligible based on patient's age to complete this topic Medical Devices Implanted Type Area Condominium Property Manager Device Identifier Shelf Expiration Date Model / Serial / Lot Crowns-Top Front X2 Procedures Procedure Name Priority Date/Time Associated Diagnosis Comments LIQUID-BASED PAP SMEAR WITH HPV GENOTYPING IF ASCUS, [facility] (RICKY,COR,MAD) Routine 05/18/2023 1:43 PM EST Screening for cervical cancer HEPATITIS C ANTIBODY Routine 09/04/2022 11:32 AM EDT care, subsequent in first trimester from Last 3 Months or Most Recently Relevant to Health Maintenance Results * LIQUID-BASED PAP SMEAR WITH HPV GENOTYPING IF ASCUS (RICKY,COR,MAD) (05/18/2023 1:43 PM EST) Pathologist [facility] Reference Lab Report [facility] [address] [place] [address] or [phone] Willi Chowdhury M.D., Gas Burner Operator PATIENT NAME [facility]. [id number] AGE SEX SSN CLIENT REF # OSIRIS ALICIA MD 27 1995 F [id number] OSIRIS ALICIA MD REQUESTING MKarin. ATTENDING M.D. COPY TO. 17[address] [facility] [address] [place] [address] DATE COLLECTED DATE RECEIVED DATE REPORTED 05/18/2023 05/18/2023 05/21/2023 ThinPrep Pap with Cytyc Imaging DIAGNOSIS: Negative for intraepithelial lesion or malignancy Multiple factors can influence accuracy of Pap tests; therefore, screening at regular intervals is necessary for early cancer detection. SPECIMEN ADEQUACY: SATISFACTORY FOR EVALUATION Transformation zone is present. Partially obscuring inflammation is present. SOURCE OF SPECIMEN: CERVICAL SLIDES: 1 CLINICAL HISTORY: Screening for cervical cancer STEEL WORKER: GEETA GARCIA (ASCP) CPT CODES: [id number] 05/21/2023 4:41 PM EST [facility] ThinPrep Vial Collection / Unknown 05/18/2023 1:43 PM EST 05/18/2023 1:43 PM EST us Osiris Alicia MD PATHOLOGY/CYTOLOGY ORDERAB LES Final Result [facility]
[address] [place] [address], * Hepatitis C Antibody (09/04/2022 11:32 AM EDT) Hepatitis C Ab Non-Reacti ve Non-Reacti ve 09/04/2022 8:26 PM EDT [facility] Blood Venipuncture / Unknown 09/04/2022 11:32 AM EDT 09/04/2022 11:33 AM EDT Narrative [facility] - 09/04/2022 8:26 PM EDT Results may be falsely decreased if patient taking Biotin. us Osiris Alicia MD LAB BLOOD ORDERABLES Final Result [facility]
[address] [place] [address], [place] [phone] from Last 3 Months or Most Recently Relevant to Health Maintenance Insurance [employer] Advance Directives * CPR (Attempt to Resuscitate) (Latest Code Status on File) Date Activated Date Inactivated Comments 04/05/2023 9:15 PM 04/07/2023 1:08 PM Question Answer Comments Code Status (Patient has no pulse and is not breathing): CPR (Attempt to Resuscitate) Medical Interventions (Patie nt has pulse or is breathing): Full Support * CPR (Attempt to Resuscitate) Date Activated Date Inactivated Comments 04/05/2023 6:07 AM 04/05/2023 9:15 PM Question Answer Comments Code Status (Patient has no pulse and is not breathing): CPR (Attempt to Resuscitate) Medical Interventions (Patie nt has pulse or is breathing): Full Support * CPR (Attempt to Resuscitate) Date Activated Date Inactivated Comments 03/12/2023 10:35 AM 03/12/2023 7:10 PM Question Answer Comments Code Status (Patient has no pulse and is not breathing): CPR (Attempt to Resuscitate) Medical Interventions (Patie nt has pulse or is breathing): Full Support Level Of Support Discussed With: Patient * CPR (Attempt to Resuscitate) Date Activated Date Inactivated Comments 10/25/2021 6:41 PM 10/27/2021 5:39 PM Question Answer Comments Code Status (Patient has no pulse and is not breathing): CPR (Attempt to Resuscitate) Medical Interventions (Patie nt has pulse or is breathing): Full * CPR (Attempt to Resuscitate) Date Activated Date Inactivated Comments 10/24/2021 9:42 PM 10/25/2021 6:41 PM Question Answer Comments Code Status (Patient has no pulse and is not breathing): CPR (Attempt to Resuscitate) Medical Interventions (Patie nt has pulse or is breathing): Full Support Care Teams Purchasing Engineer Relationship Specialty Start Date End Date Vignesh Strickland DO [address] [place] [address] PCP - General Internal Medicine 02/04/24
--- OUTSIDE RECORDS SUMMARY | 2025-01-15 14:28 | XMS_ITS | Encounter Summary ---
[facility] Organization [facility] Address [address] [place] [phone] Care Team Providers Care Strip Machine Operator Name Role Phone Vignesh Strickland DO Primary Care Provider + Encounter Details Date Type Department Care Team (Late st Contact Info) Description 10/15/2024 Results Follow-Up [facility] OBGYN [address] [phone] Toro Valdez MD 1700 [facility] [address] [place] [address] 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 Tobacco Use Types Packs/Day Years Used Date Smoking Tobacco: Never Smokeless Tobacco: Never Alcohol Use Standard Drinks/Week Comments Not Currently 0 (1 standard drink = 0.6 oz pure alcohol) No alcohol since start of meds in June 2020 [facility] Utilities Answer Date Recorded In the past 12 months has [employer], oil, or water [employer] threatened to shut off services in your [...] things needed for daily living? No 04/05/2023 [place] Depression Scale Answer Date Recorded Retired [place] Depression Score 5 04/05/2023 Retired EPD Scale: [...] GED or equivalent No 04/05/2023 Preferred Language Khmer 04/05/2023 PHQ-2 Answer Date Recorded Retired PHQ-9: [...] Description 05/21/2025 1:50 PM EST Office Visit [facility] OBGYN [address] [phone] Toro Valdez MD [address] [place] [phone] documented as of this encounter Visit Diagnoses Not on filedocumented in this encounter Care Teams Strip Machine Operator Relationship Specialty Start Date End Date Vignesh Strickland DO [address] [place] [address] PCP - General Internal Medicine 02/04/24 documented as of this encounter
[2025-01-15 15:49] LABS: Free T4 (Free Thyroxine) 1.20 ng/dl (0.78-2.19)
[2025-01-15 16:03] LABS: Thyroid Stimulating Hormone 0.21 uIU/mL (0.465-4.68)
== END 2025-01-15 23:59 | disposition home or self-care (01) ==
PROVIDERS: PCP Internal Medicine; Visit Provider Student in an Organized Health Care Education/Training Program
DX: E28.2 Polycystic ovarian syndrome (principal)
CPT/HCPCS: 36415; 82166; 83498; 84439; 84443

== ENCOUNTER 2025-01-16 08:23 | Outpatient (CLI) | payer OTHER, SELFPAY ==
--- OUTSIDE RECORDS SUMMARY | 2021-06-24 14:16 | XMS_ITS | Encounter Summary ---
Author Organization [facility] Address [address] [place] [id number] Care Team Providers Care Reordering Clerk Name Role Phone Dotty Falk APRN Primary Care Provid er Reason for Referral * Diagnostic Imaging (Routine) - Closed Specialty Diagnoses / Procedures Referred By Contac t Referred To Contact Radiology Diagnoses Encounter for supervision of normal first in second trimester Procedures US Ob 14 + Weeks Single or First Gestation Osiris Alicia MD [address] [place] [address] Phone: tel: fax: [facility] Phone: tel: Referral ID Status Reason Start Date Expiration Date Visits Re quested Visits Authorized [id number] Closed 06/07/2021 06/07/2022 1 1 Reason for Visit * Diagnostic Imaging (Routine) - Closed Specialty Diagnoses / Procedures Referred By Contac t Referred To Contact Radiology Diagnoses Encounter for supervision of normal first in second trimester Procedures US Ob 14 + Weeks Single or First Gestation [facility] [place] [address] Phone: tel: fax: [facility] Phone: tel: Referral ID Status Reason Start Date Expiration Date Visits Re quested Visits Authorized [id number] Closed 06/07/2021 06/07/2022 1 1 Encounter Details Date Type Department Care Team (Latest Contact Info) Description 06/24/2021 1:16 PM EST Hospital Encounter [facility] [place] [phone] Encounter for supervision of normal first in second trimester 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 Tobacco Use Types Packs/Day Years Used Date Smoking Tobacco: Never Smokeless Tobacco: Never Alcohol Use Standard Drinks/Week Comments Not Currently 0 (1 standard drink = 0.6 oz pure alcohol) No alcohol since start of meds in June 2020 [facility] Utilities Answer Date Recorded In the [...] things needed for daily living? No 04/05/2023 [place] Depression Scale Answer Date Recorded Retired [place] Depression Score 5 04/05/2023 Retired EPD Scale: [...] GED or equivalent No 04/05/2023 Preferred Language Sudanese 04/05/2023 PHQ-2 Answer Date Recorded Retired PHQ-9: [...] Assessment Author 0 04/05/2023 7:25 AM Krystal aYp RN * Question Answer Date of Assessment [...] Description 05/21/2025 1:50 PM EST Office Visit [facility]YN [address] [facility] [address] [place] [phone] Osiris Alicia MD [address] [facility] [address] [place], [place] [id number] documented as of this encounter Procedures Procedure [...] EST PAT NAME: RASTA ARBOLEDA MED REC#: [id number] DA: [id number] PAT GEND: F PAT TYPE: O EXAM AMPARO: [id number] REF PHYS OSIRIS ALICIA Indication ======== anatomy [...] EFW (oz) 15 oz EFW by: Hadlock ([id number]) Extended Glost Kiln Placer 5.6 mm CM 4.2 mm 17% Nicolaides [...] Heart / Thorax 3-vessel view: Appears normal 4-nvdkve-jcpqstr view: Appears normal Diaphragm: Appears normal Diaphragm: [...] subsequent visit to complete the anatomic screening Salesperson Wigs: Sara Ortez RDMS Physician: Osiris Alicia MD Electronically signed by: Osiris Alicia MD at: 08:30 Procedure Note Osiris Alicia MD - 06/26/2021 PAT NAME: RASTA ARBOLEDA MED REC#: [id number] DA: [id number] PAT GEND: F PAT TYPE: O EXAM AMPARO: [id number] REF PHYS OSIRIS ALICIA Indication ======== anatomy survey Comparison Studies There are no relevant prior studies to which this study is beingcompared Method ======= Voluson E6, Transabdominal ultrasound examination. View: Sufficient view ========= Elena . Number of fetuses: 1 Dating ====== Method of dating:based on stated EMANUEL GA by prior [id number] w + 1 d EMANUEL by prior assessment:11/03/2021 Ultrasound examination on:06/24/2021 GA by U/S based upon:AC, BPD, Femur, HC GA by U/S21 w + 5 d EMANUEL by U/S:10/30/2021 Assigned:based on stated EMANUEL, selected on 06/24/2021 Assigned GA21 w + 1 d Assigned EMANUEL:11/03/2021 [id number] d General Evaluation Cardiac activity present. FHR [...] 21w 2d 44% Hadlock HC / AC1.24 [id number] g EFW (lb)0 lb EFW (oz)15 oz EFW by:Hadlock ([id number]) Extended Vp5.6 mm CM4.2 mm 17% Nicolaides Extremities / Bony Struc FL / BPD0.67 FL / HC0.18 FL / AC0.22 Other Structures [id number] bpm Anatomy Cranium:Appears normal Lateral ventricles:Appears normal Choroid plexus:Appears normal Midline falx:Appears normal Cavum septi pellucidi:Appears normal Cerebellum:Appears normal Cisterna magna:Appears normal Lips:Appear normal Profile:Appears normal Nose:Appears normal 4-chamber view:Appears normal RVOT view:Appears normal LVOT view:Appears normal Heart / Thorax 3-vessel view:Appears normal 1-cxywts-trcxgll view:Appears normal Diaphragm:Appears normal Diaphragm:Intact Cord insertion:Appears [...] a subsequent visit tocomplete the anatomic screening Salesperson Wigs: Sara Ortez RDMS Physician: Osiris Alicia MD [...] documented as of this encounter Care Teams Reordering Clerk Relationship Specialty Start Date End Date Dotty Falk APRN [address] [place] [facility] [address] [facility] [place] [address] PCP - General Family Medicine 10/13/16 07/25/22 documented as of this encounter
--- OUTSIDE RECORDS SUMMARY | 2021-07-22 08:27 | XMS_ITS | Encounter Summary ---
Author Organization [facility] Address [address] [place] [phone] Care Team Providers Care Configuration Management Specialist Name Role Phone Dotty Falk APRN Primary Care Provid er Reason for Referral * Diagnostic Imaging (Routine) - Closed Specialty Diagnoses / Procedures Referred By Contac t Referred To Contact Radiology Diagnoses Encounter for supervision of normal first in second trimester Procedures US Ob Follow Up Transabdominal Approach Osiris Alicia MD [address] [place] [address] Phone: tel: fax: [facility] Phone: tel: Referral ID Status Reason Start Date Expiration Date Visits Re quested Visits Authorized [id number] Closed 06/24/2021 06/24/2022 1 1 Reason for Visit * Diagnostic Imaging (Routine) - Closed Specialty Diagnoses / Procedures Referred By Contac t Referred To Contact Radiology Diagnoses Encounter for supervision of normal first in second trimester Procedures US Ob Follow Up Transabdominal Approach Osiris Alicia MD [address] [place] [address] Phone: tel: fax: [facility] Phone: tel: Referral ID Status Reason Start Date Expiration Date Visits Re quested Visits Authorized [id number] Closed 06/24/2021 06/24/2022 1 1 Encounter Details Date Type Department Care Team (Latest Contact Info) Description 07/22/2021 8:27 AM EDT Hospital Encounter NERY GRANGER [facility] [place] [phone] Encounter for supervision of normal first in second trimester 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 Tobacco Use Types Packs/Day Years Used Date Smoking Tobacco: Never Smokeless Tobacco: Never Alcohol Use Standard Drinks/Week Comments Not Currently 0 (1 standard drink = 0.6 oz pure alcohol) No alcohol since start of meds in June 2020 [facility] Utilities Answer Date Recorded In the past [...] things needed for daily living? No 04/05/2023 [place] Depression Scale Answer Date Recorded Retired [place] Depression Score 5 04/05/2023 Retired EPD Scale: [...] GED or equivalent No 04/05/2023 Preferred Language Omani 04/05/2023 PHQ-2 Answer Date Recorded Retired PHQ-9: [...] Description 05/21/2025 1:50 PM EST Office Visit [facility] [facility] [address] [place] [address] Osiris Alicia MD [address] [facility] [address] [place] [address] documented as of this encounter Procedures Procedure [...] EDT PAT NAME: RASTA ARBOLEDA MED REC#: [id number] DA: [id number] PAT GEND: F PAT TYPE: O EXAM WILNER: [id number] REF PHYS OSIRIS ALICIA Indication ======== Follow-up [...] complete. Recommendation Follow-up scan as clinically indicated Air Support Control Officer: Aline Russell RDMS Physician: Osiris Alicia MD Electronically signed by: Osiris Alicia MD at: 18:15 Procedure Note Osiris Alicia MD - 07/22/2021 PAT NAME: GRAHAM ARBOLEDAA [facility] REC#: [id number] DA: [id number] PAT GEND: F PAT TYPE: O EXAM WILNER: [id number] REF PHYS OSIRIS ALICIA Indication ======== Follow-up [...] GA25 w + 1 d Assigned EMANUEL:11/03/2021 [id number] d General Evaluation Cardiac activity present. FHR [...] complete. Recommendation Follow-up scan as clinically indicated Air Support Control Officer: Aline Russell RDMS Physician: Osiris Alicia [...] documented as of this encounter Care Teams Configuration Management Specialist Relationship Specialty Start Date End Date Dotty Falk APRN [address] [place] [address] [address] [place] [address] PCP - General Family Medicine 10/13/16 07/25/22 documented as of this encounter
--- OUTSIDE RECORDS SUMMARY | 2022-09-04 09:26 | XMS_ITS | Encounter Summary ---
Author Organization [facility] Address [address] [place] [id number] Care Team Providers Care Chassis Engineer Name Role Phone Cipriano Frias MD Primary Care Provider [phone] Reason for Referral * Diagnostic Imaging (Routine) - Closed Specialty Diagnoses / Procedures Referred By Contac t Referred To Contact Radiology Diagnoses Encounter to determine viability of , single or unspecified fetus Procedures US OB Transvaginal Osiris Alicia MD [address] [place] [address] Phone: tel: fax: [facility] Phone: tel: Referral ID Status Reason Start Date Expiration Date Visits Re quested Visits Authorized [id number] Closed 08/30/2022 08/30/2023 1 1 Reason for Visit * Diagnostic Imaging (Routine) - Closed Specialty Diagnoses / Procedures Referred By Contac t Referred To Contact Radiology Diagnoses Encounter to determine viability of , single or unspecified fetus Procedures US OB Transvaginal Osiris Alicia MD [address] [place] [address] Phone: tel: fax: [facility] Phone: tel: Referral ID Status Reason Start Date Expiration Date Visits Re quested Visits Authorized [id number] Closed 08/30/2022 08/30/2023 1 1 Encounter Details Date Type Department Care Team (Latest Contact Info) Description 09/04/2022 9:26 AM EDT Hospital Encounter [facility] [place] [phone] Encounter to determine viability of , single or unspecified fetus 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 Tobacco Use Types Packs/Day Years Used Date Smoking Tobacco: Never Smokeless Tobacco: Never Alcohol Use Standard Drinks/Week Comments Not Currently 0 (1 standard drink = 0.6 oz pure alcohol) No alcohol since start of meds in June 2020 [facility] Utilities Answer Date Recorded In the past 12 months has th e [employer], gas, oil, or water [employer] threatened to shut off services in your [...] things needed for daily living? No 04/05/2023 Adams Depression Scale Answer Date Recorded Retired Adams Depression Score 5 04/05/2023 Retired EPD Scale: [...] GED or equivalent No 04/05/2023 Preferred Language Danish 04/05/2023 PHQ-2 Answer Date Recorded Retired PHQ-9: [...] Description 05/21/2025 1:50 PM EST Office Visit [facility] OBGYN [address] [facility] [address] [place] [phone] Osiris Alicia MD [address] [address] documented as of this encounter Procedures Procedure [...] EDT PAT NAME: RASTA ARBOLEDA MED REC#: [id number] DA: [id number] PAT GEND: F PAT TYPE: O EXAM WILNER: [id number] REF PHYS OSIRIS ALICIA Indication ======== viability [...] clinical dates Recommendation Follow-up as clinically indicated. Regional Forester: Aline Russell RDMS Physician: Osiris Alicia MD Electronically signed by: Osiris Alicia MD at: 07:29 Procedure Note Osiris Alicia MD - 09/05/2022 PAT NAME: RASTA ARBOLEDA MED REC#: [id number] DA: [id number] PAT GEND: F PAT TYPE: O EXAM WILNER: [id number] REF PHYS OSIRIS ALICIA Indication ======== viability [...] GA8 w + 5 d Assigned EMANUEL:04/11/2023 [id number] d Assessment Gestational sac:visualized Location:intrauterine Yolk sac:visualized Embryo:visualized CRL18.0 mm 8w 2d 16% Hadlock Cardiac activity:present IZA770 bpm Placenta:Too early to evaluate Maternal Structures Uterus / Cervix Uterus:Visualized Cervix:Visualized Ovaries / Tubes / Adnexa Rt ovary:Visualized Lt ovary:Visualized Lt ovarian corpus luteum:a well circumscribed unilocular cyst withperipheral Doppler flow is present - typical of a corpus luteum Impression ========= Single viable intrauterine with normal cardiac activity andbiometry consistent with clinical dates Recommendation Follow-up as clinically indicated. Regional Forester: Aline Russell RDMS Physician: Osiris Alicia MD Electronically signed by: Osiris Alicia MD at: 07:29 us Osiris Alicia MD IMG US ORDERABLES Final Re sult documented in this encounter Visit Diagnoses Diagnosis Encounter to determine viability of , single or unspecified fetus documented in this encounter Care Teams Chassis Engineer Relationship Specialty Start Date End Date Cipriano Frias MD [address] [place] [address] PCP - General Family Medicine 07/26/22 02/03/24 documented as of this encounter
--- OUTSIDE RECORDS SUMMARY | 2022-11-23 13:21 | XMS_ITS | Encounter Summary ---
Author Organization [facility] Address [address] [place] [address] Care Team Providers Care Manager Math Name Role Phone Cipriano Frias MD Primary Care Provider [phone] Reason for Referral * Diagnostic Imaging (Routine) - Closed Specialty Diagnoses / Procedures Referred By Contac t Referred To Contact Radiology Diagnoses 16 weeks gestation of Procedures US Ob 14 + Weeks Single or First Gestation Eren Sauceda CNM [address] [place] [address] Phone: tel: fax: [facility] Phone: tel: Referral ID Status Reason Start Date Expiration Date Visits Re quested Visits Authorized [id number] Closed 10/26/2022 10/26/2023 1 1 Reason for Visit * Diagnostic Imaging (Routine) - Closed Specialty Diagnoses / Procedures Referred By Contac t Referred To Contact Radiology Diagnoses 16 weeks gestation of Procedures US Ob 14 + Weeks Single or First Gestation Eren Sauceda CNM [address] [facility] [address] [place], [place] [address] Phone: tel: fax: [facility] Phone: tel: Referral ID Status Reason Start Date Expiration Date Visits Re quested Visits Authorized [id number] Closed 10/26/2022 10/26/2023 1 1 Encounter Details Date Type Department Care Team (Latest Contact Info) Description 11/23/2022 1:21 PM EDT Hospital Encounter [facility] [place] [phone] 16 weeks gestation of 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 Tobacco Use Types Packs/Day Years Used Date Smoking Tobacco: Never Smokeless Tobacco: Never Alcohol Use Standard Drinks/Week Comments Not Currently 0 (1 standard drink = 0.6 oz pure alcohol) No alcohol since start of meds in June 2020 [facility] Utilities Answer Date Recorded In the past 12 months has th e [employer], gas, oil, or water [employer] threatened to shut off services in your [...] things needed for daily living? No 04/05/2023 [place] Depression Scale Answer Date Recorded Retired [place] Depression Score 5 04/05/2023 Retired EPD Scale: [...] or equivalent No 04/05/2023 Preferred Language South Sudanese 04/05/2023 PHQ-2 Answer Date Recorded Retired [...] Description 05/21/2025 1:50 PM EST Office Visit [facility] OBGYN [address] [facility] [address] [place] [address] [phone] Toro Valdez MD [address] [facility] [address] [place] [phone] documented as of this encounter Procedures Procedure Name Priority Date/Time Associated Diagnosis Comments US OB 14 + WEEKS SINGLE OR FIRST GESTATION Routine 11/23/2022 2:23 PM EDT 16 weeks gestation of documented in this encounter Results * US Ob 14 + Weeks Single or First Gestation (11/23/2022 2:23 PM EDT) Anatomical Region Laterality Modality Body Ultrasound 11/23/2022 1:41 PM EDT Narrative 11/24/2022 9:41 AM EDT PAT NAME: RASTA ARBOLEDA MED REC#: [id number] DA: [id number] PAT GEND: F PAT TYPE: O EXAM AMPARO: [id number] REF PHYS EREN SAUCEDA Indication ======== anatomy survey Comparison Studies There are no relevant prior studies to which this study is being compared History ====== Previous Outcomes 2 Para 1 Method ======= Voluson E6, Transabdominal ultrasound examination. View: Sufficient view ========= Elena . Number of fetuses: 1 Dating ====== LMP on: 07/05/2022 GA by LMP 20 w + 1 d EMANUEL by LMP: 04/11/2023 GA by prior assessment 20 w + 1 d EMANUEL by prior assessment: 04/11/2023 Ultrasound examination on: 11/23/2022 GA by U/S based upon: AC, BPD, Femur, HC GA by U/S 19 w + 1 d EMANUEL by U/S: 04/18/2023 Method of dating: Restore dating from previous exam Previous dating: based on the LMP, selected on 09/04/2022 Agreed EMANUEL of previous datin04/11/2023 Assigned: based on the LMP, selected on 09/04/2022 Assigned GA 20 w + 1 d Assigned EMANUEL: 04/11/2023 length 280 d General Evaluation Cardiac activity present. FHR 145 bpm. movements present. Presentation breech. Placenta Placental site: anterior, right. Umbilical cord Cord vessels: 3 vessel cord. Amniotic fluid Amount of AF: normal. Biometry Standard BPD 42.3 mm 18w 6d 7% Hadlock OFD 60.6 mm 20w 6d 76% Mary HC 165.2 mm 19w 2d 9% Hadlock AC 140.2 mm 19w 3d 21% Hadlock Femur 29.2 mm 19w 0d 10% Hadlock HC / AC 1.18 62% Hadlock EFW 279 g EFW (lb) 0 lb EFW (oz) 10 oz EFW by: Hadlock ([id number]-IJ-FL) Head / Face / Neck Cephalic index 0.70 <1% Nicolaides Extremities / Bony Struc FL / BPD 0.69 37% Hadlock FL / HC 0.18 24% Hadlock FL / AC 0.21 22% Hadlock Other Structures FHR 145 bpm Anatomy Cranium: Appears normal Lateral ventricles: Appears normal Choroid plexus: Appears normal Midline falx: Appears normal Cavum septi pellucidi: Appears normal Cerebellum: Appears normal Cisterna magna: Appears normal Lips: Appear normal Profile: Appears normal Nose: Appears normal 4-chamber view: Appears normal RVOT view: Appears normal LVOT view: Appears normal Heart / Thorax 3-vessel view: Appears normal 1-kxvzyl-fjrjnix view: Appears normal Diaphragm: Appears normal Diaphragm: Intact Cord insertion: Appears normal Stomach: Appears normal Kidneys: Appears normal Bladder: Appears normal Abdomen Abdom. wall: Abdominal wall is intact Stomach: left-sided Cervical spine: suboptimal Thoracic spine: suboptimal Lumbar spine: suboptimal Sacral spine: suboptimal Arms: Appears normal Legs: Appears normal Rt [...] cardiac activity and biometry consistent with clinical dates. No structural abnormalities are seen on today's scan. Anatomic survey is incomplete. Recommendation If needed clinically, the patient should return at a subsequent visit to complete the anatomic screening. Manager Project Management: Vida Posadas RDTX Physician: Toro Valdez MD Electronically signed by: Toro Valdez MD at: 09:41 Procedure Note Toro Valdez MD - 11/24/2022 PAT NAME: ARBOLEDARASTA MED REC#: [id number] DA: [id number] PAT GEND: F PAT TYPE: O EXAM AMPARO: [id number] REF PHYS EREN SACUEDA Indication ======== anatomy survey Comparison Studies There are no relevant prior studies to which this study is beingcompared History ====== Previous Outcomes Gravida2 Para1 Method ======= Voluson E6, Transabdominal ultrasound examination. View: Sufficient view ========= Elena . Number of fetuses: 1 Dating ====== LMP on:07/05/2022 GA by LMP20 w + 1 d EMANUEL by LMP:04/11/2023 GA by prior [email or web address] w + 1 d EMANUEL by prior assessment:04/11/2023 Ultrasound examination on:11/23/2022 GA by U/S based upon:AC, BPD, Femur, HC GA by U/S19 w + 1 d EMANUEL by U/S:04/18/2023 Method of dating:Restore dating from previous exam Previous dating:based on the LMP, selected on 09/04/2022 Agreed EMANUEL of previous datin04/11/2023 Assigned:based on the LMP, selected on 09/04/2022 Assigned GA20 w + 1 d Assigned EMANUEL:04/11/2023 [id number] d General Evaluation Cardiac activity present. FHR 145 bpm. movements present. Presentation breech. Placenta Placental site: anterior, right. Umbilical cord Cord vessels: 3 vessel cord. Amniotic fluid Amount of AF: normal. Biometry Standard BPD42.3 mm 18w 6d 7% Hadlock OFD60.6 mm 20w 6d 76% Mary HC165.2 mm 19w 2d 9% Hadlock AC140.2 mm 19w 3d 21% Hadlock Femur29.2 mm 19w 0d 10% Hadlock HC / AC1.18 62% Hadlock IRZ336 g EFW (lb)0 lb EFW (oz)10 oz EFW by:Hadlock (VEQ-NB-CF-FL) Head / Face / Neck Cephalic index0.70 <1% Nicolaides Extremities / Bony Struc FL / BPD0.69 37% Hadlock FL / HC0.18 24% Hadlock FL / AC0.21 22% Hadlock Other Structures SUN217 bpm Anatomy Cranium:Appears normal Lateral ventricles:Appears normal Choroid plexus:Appears normal Midline falx:Appears normal Cavum septi pellucidi:Appears normal Cerebellum:Appears normal Cisterna magna:Appears normal Lips:Appear normal Profile:Appears normal Nose:Appears normal 4-chamber view:Appears normal RVOT view:Appears normal LVOT view:Appears normal Heart / Thorax 3-vessel view:Appears normal 8-cktwop-bwmlbft view:Appears normal Diaphragm:Appears normal Diaphragm:Intact Cord insertion:Appears normal Stomach:Appears normal Kidneys:Appears normal Bladder:Appears normal Abdomen Abdom. wall:Abdominal wall is intact Stomach:left-sided Cervical spine:suboptimal Thoracic spine:suboptimal Lumbar spine:suboptimal Sacral spine:suboptimal Arms:Appears normal Legs:Appears normal Rt arm:Appears normal Lt arm:Appears normal Rt hand:Appears normal Lt hand:Appears normal Rt leg:Appears normal Lt leg:Appears normal Rt foot:Appears normal Lt foot:Appears normal Gender:male Wants to know gender:yes Maternal Structures Uterus / Cervix Uterus:Visualized Cervix:Visualized Ovaries / Tubes / Adnexa Rt ovary:Visualized Lt ovary:Visualized Impression ========= Single viable intrauterine with normal cardiac activity andbiometry consistent with clinical dates. No structural abnormalities are seen on today's scan. Anatomicsurvey is incomplete. Recommendation If needed clinically, the patient should return at a subsequent visit tocomplete the anatomic screening. Manager Project Management: Vida Posadas RDMS Physician: Toro Valdez MD Electronically signed by: Toro Valdez MD at: 09:41 Eren Sauceda [facility] US ORDERABLES Final Resul t documented in this encounter Visit Diagnoses Diagnosis 16 weeks gestation of documented in this encounter Care Teams Manager Math Relationship Specialty Start Date End Date Cipriano Frias MD [address] [place] [phone] PCP - General Family Medicine 07/26/22 02/03/24 documented as of this encounter
--- OUTSIDE RECORDS SUMMARY | 2022-12-21 11:43 | XMS_ITS | Encounter Summary ---
Author Organization [facility] Address [address] [place] [address] Care Team Providers Care Chlorine Cells Operator Name Role Phone Cipriano Frias MD Primary Care Provider [phone] Reason for Referral * Diagnostic Imaging (Routine) - Closed Specialty Diagnoses / Procedures Referred By Contac t Referred To Contact Radiology Diagnoses care, subsequent in second trimester Procedures US Ob Follow Up Transabdominal Approach Osiris Alicia MD [address] [place] [address] Phone: tel: fax: Referral ID Status Reason Start Date Expiration Date Visits Re quested Visits Authorized [id number] Closed 11/23/2022 11/23/2023 1 1 Reason for Visit * Diagnostic Imaging (Routine) - Closed Specialty Diagnoses / Procedures Referred By Contac t Referred To Contact Radiology Diagnoses care, subsequent in second trimester Procedures US Ob Follow Up Transabdominal Approach Osiris Alicia MD [address] [place] [address] Phone: tel: fax: Referral ID Status Reason Start Date Expiration Date Visits Re quested Visits Authorized [id number] Closed 11/23/2022 11/23/2023 1 1 Encounter Details Date Type Department Care Team (Latest Contact Info) Description 12/21/2022 11:43 AM EDT Hospital Encounter [facility] [phone] care, subsequent in second trimester 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 Tobacco Use Types Packs/Day Years Used Date Smoking Tobacco: Never Smokeless Tobacco: Never Alcohol Use Standard Drinks/Week Comments Not Currently 0 (1 standard drink = 0.6 oz pure alcohol) No alcohol since start of meds in June 2020 [facility] Utilities Answer Date Recorded In the [...] things needed for daily living? No 04/05/2023 [place] Depression Scale Answer Date Recorded Retired [place] Depression Score 5 04/05/2023 Retired EPD Scale: [...] GED or equivalent No 04/05/2023 Preferred Language Montenegrin 04/05/2023 PHQ-2 Answer Date Recorded Retired PHQ-9: [...] Description 05/21/2025 1:50 PM EST Office Visit [facility] OBGYN [address] [facility] [address] [place] [address] Osiris Alicia MD [address] [facility] [address] [place] [phone] documented as of this encounter Procedures Procedure [...] EDT PAT NAME: RASTA LUJAN MED REC#: [id number] DA: [id number] PAT GEND: F PAT TYPE: O EXAM AMPARO: [id number] REF PHYS OSIRIS ALICIA Indication ======== Follow-up [...] complete. Recommendation Follow-up scan as clinically indicated. Estimator Printing: Aline Russell RDMS Physician: Osiris Alicia MD Electronically signed by: Osiris Alicia MD at: 07:16 Procedure Note Osiris Alicia MD - 12/22/2022 PAT NAME: RASTA LUJAN MED REC#: [id number] DA: [id number] PAT GEND: F PAT TYPE: O EXAM AMPARO: [id number] REF PHYS OSIRIS ALICIA Indication ======== Follow-up [...] GA24 w + 1 d Assigned EMANUEL:04/11/2023 d General Evaluation Cardiac activity present. FHR [...] complete. Recommendation Follow-up scan as clinically indicated. Estimator Printing: Aline Russell RDVT Physician: Osiris Alicia MD Electronically signed by: Osiris Alicia MD at: 07:16 us Osiris Alicia MD IMG US ORDERABLES Final Re sult documented in this encounter Visit Diagnoses Diagnosis care, subsequent in second trimester documented in this encounter Care Teams Chlorine Cells Operator Relationship Specialty Start Date End Date Cipriano Frias MD [address] [place] [address] PCP - General Family Medicine 07/26/22 02/03/24 documented as of this encounter
--- OUTSIDE RECORDS SUMMARY | 2024-09-29 11:18 | XMS_ITS | Encounter Summary ---
[facility] Address [address] [place] [address] Care Team Providers Care Burnt Lime Drawer Name Role Phone Vignesh Strickland DO Primary Care Provider + Reason for Referral * Diagnostic Imaging (Routine) - Closed Specialty Diagnoses / Procedures Referred By Contact Referred To Contact Obstetrics and Gynecology Diagnoses Bloating Procedures US Non-ob Transvaginal Osiris Alicia MD [address] [place] [address] Phone: tel: fax: [facility] OBGYN [address] [address] Phone: tel: fax: Referral ID Status Reason Start Date Expiration Date Visits Re quested Visits Authorized [id number] Closed 09/23/2024 12/23/2025 1 1 Reason for Visit * Diagnostic Imaging (Routine) - Closed Specialty Diagnoses / Procedures Referred By Contact Referred To Contact Obstetrics and Gynecology Diagnoses Bloating Procedures US Non-ob Transvaginal Osiris Alicia MD [address] [place] [address] Phone: tel: fax: [facility] OBG[facility] [address] [address] Phone: tel: fax: Referral ID Status Reason Start Date Expiration Date Visits Re quested Visits Authorized [id number] Closed 09/23/2024 12/23/2025 1 1 Encounter Details Date Type Department Care Team (Mira kelly Contact Info) Description 09/29/2024 11:18 AM EDT Hospital Encounter [facility] [phone] Bloating 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 Tobacco Use Types Packs/Day Years Used Date Smoking Tobacco: Never Smokeless Tobacco: Never Alcohol Use Standard Drinks/Week Comments Not Currently 0 (1 standard drink = 0.6 oz pure alcohol) No alcohol since start of meds in June 2020 [facility] Utilities Answer Date Recorded In [...] things needed for daily living? No 04/05/2023 [place] Depression Scale Answer Date Recorded Retired [place] Depression Score 5 04/05/2023 Retired EPD Scale: [...] GED or equivalent No 04/05/2023 Preferred Language Tongan 04/05/2023 PHQ-2 Answer Date Recorded Retired PHQ-9: [...] on file documented as of this encounter Plan of Treatment Upcoming Encounters Date Type Department Care Team (Late st Contact Info) Description 05/21/2025 1:50 PM EST Office Visit [facility] [address] [facility] [address] [address] [place] [address] Osiris Alicia MD 1700 [facility] [address] [place] [address] documented as of this encounter Procedures Procedure Name Priority Date/Time Associated Diagnosis Comments US NON-OB TRANSVAGINAL Routine 09/29/2024 11:58 AM EDT Bloating documented in this encounter Results * US Non-ob Transvaginal (09/29/2024 11:58 AM EDT) Anatomical Region Laterality Modality Body Ultrasound 09/29/2024 11:4 9 AM EDT Narrative 10/02/2024 1:12 PM EDT PAT NAME: RASTA ARBOLEDA MED REC#: [id number] DA: [id number] PAT GEND: F PAT TYPE: O EXAM AMPARO: [id number] REF PHYS OSIRIS ALICIA Indication ======== Bloating Dx: Bloating [R14.0 (ICD-10-CM)] Comparison Studies There are no relevant prior studies to which this study is being compared History ====== Previous Outcomes 2 Para 1 Assessment LMP on 09/03/2024 Method ======= Voluson E6, Transvaginal ultrasound examination, Color Doppler flow performed, 3D ultrasound examination. View: Adequate view Uterus ====== Uterus: Normal Uterus position: Retroverted Description of uterine malformations: none Myometrium: Homogeneous Endometrium: Uniform Cervix details: Normal Uterus long 48 mm Uterus ap 38 mm Uterus tr 47 mm Uterus Vol 45.4 cm Endometrial thickness, total 3.2 mm Cervical length 21.0 mm Right Ovary Rt ovary: Normal Rt ovary D1 34.7 mm Rt ovary D2 15.9 mm Rt ovary D3 14.5 mm Rt ovary Vol 4.2 cm Left Ovary ========= Lt ovary: Normal Lt ovary D1 38.0 mm Lt ovary D2 16.4 mm Lt ovary D3 20.00 mm Lt ovary Vol 6.5 cm Cul de Sac ========= Visualized. Free fluid visualized: mild Impression ========= Normal pelvic ultrasound Recommendation Follow-up as clinically indicated. Retail Specialist: Vida Posadas RDMS Physician: Osiris Alicia MD Electronically signed by: Osiris Alicia MD at: 13:12 Procedure Note Osiris Alicia MD - 10/02/2024 PAT NAME: RASTA ARBOLEDA MED REC#: [id number] DA: [id number] PAT GEND: F PAT TYPE: O EXAM AMPARO: [id number] REF PHYS OSIRIS ALICIA Indication ======== Bloating Dx: Bloating [R14.0 (ICD-10-CM)] Comparison Studies There are no relevant prior studies to which this study is beingcompared History ====== Previous Outcomes Gravida2 Para1 Assessment LMP on 09/03/2024 Method ======= Voluson E6, Transvaginal ultrasound examination, Color Doppler flowperformed, 3D ultrasound examination. View: Adequate view Uterus ====== Uterus:Normal Uterus position:Retroverted Description of uterine malformations:none Myometrium:Homogeneous Endometrium:Uniform Cervix details:Normal Uterus long48 mm Uterus ap38 mm Uterus tr47 mm Uterus Vol45.4 cm Endometrial thickness, total3.2 mm Cervical ftcpod71.0 mm Right Ovary Rt ovary:Normal Rt ovary D134.7 mm Rt ovary D215.9 mm Rt ovary D314.5 mm Rt ovary Vol4.2 cm Left Ovary ========= Lt ovary:Normal Lt ovary D138.0 mm Lt ovary D216.4 mm Lt ovary D320.00 mm Lt ovary Vol6.5 cm Cul de Sac ========= Visualized. Free fluid visualized: mild Impression ========= Normal pelvic ultrasound Recommendation Follow-up as clinically indicated. Retail Specialist: Vida Posadas RDMS Physician: Osiris Alicia MD Electronically signed by: Osiris Alicai MD at: 13:12 us Osiris Alicia MD IMG US ORDERABLES Final Re sult documented in this encounter Visit Diagnoses Diagnosis Bloating Flatulence, eructation, and gas pain documented in this encounter Care Teams Burnt Lime Drawer Relationship Specialty Start Date End Date Vignesh Strickland DO [address] [place] [address] [place] [address] PCP - General Internal Medicine 02/04/24 documented as of this encounter
--- OUTSIDE RECORDS SUMMARY | 2025-01-16 08:37 | XMS_ITS | Encounter Summary ---
Author Organization [facility] Address [address] [place] [phone] Care Team Providers Care Credit Verification Clerk Name Role Phone Vignesh Strickland DO Primary Care Provider + Encounter Details Date Type Department Care Team (Late st Contact Info) Description 10/15/2024 Results Follow-Up [facility]YN [address] [phone] Toro Valdez MD 1700 [facility] [address] [place] [address] 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 Tobacco Use Types Packs/Day Years Used Date Smoking Tobacco: Never Smokeless Tobacco: Never Alcohol Use Standard Drinks/Week Comments Not Currently 0 (1 standard drink = 0.6 oz pure alcohol) No alcohol since start of meds in June [address] [facility] Utilities Answer Date Recorded In the past 12 months has [employer], oil, or water [email or web address] threatened to shut off services in your [...] things needed for daily living? No 04/05/2023 [place] Depression Scale Answer Date Recorded Retired [place] Depression Score 5 04/05/2023 Retired EPD Scale: [...] 1:50 PM EST Office Visit [facility] [address] [address] Toro Valdez MD [address] [place] [phone] documented as of this encounter Visit Diagnoses Not on filedocumented in this encounter Care Teams Credit Verification Clerk Relationship Specialty Start Date End Date Vignesh Strickland DO [address] [place] [address] PCP - General Internal Medicine 02/04/24 documented as of this encounter
--- OUTSIDE RECORDS SUMMARY | 2025-01-16 08:37 | XMS_ITS | Clinical Summary ---
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 Other info: Resolved [...] Circumcision (y / n / na): yes Asbestos Siding Mechanic: Service Baby's name: Kavon Breast/bottle feeding: breast [...] Circumcision (y / n / na): yes Asbestos Siding Mechanic: Baby's name: Archie Breast/bottle feeding: breast Placental location: anterior Postdates discussed: 10/13/21 Tdap discussed: 09/15/21 Tdap vaccine received: Flu vaccine discussed: 04/13/21 Flu vaccine received: yes Covid vaccine discussed: 04/13/21 Covid vaccine received: Yes Amenorrhea 07/16/2020 04/10/2021 PCOS (polycystic ovarian syndrome) 07/16/2020 04/10/2021 Immunizations Immunization Administration Dates Next Due COVID-19 [...] since start of meds in June 2020 [facility] Utilities Answer Date Recorded In the past 12 months has [employer] system, gas, oil, or water [email or web address] threatened to shut off services in your [...] things needed for daily living? No 04/05/2023 [place] Depression Scale Answer Date Recorded Retired [place] Depression Score 5 04/05/2023 Retired EPD Scale: [...] GED or equivalent No 04/05/2023 Preferred Language Maltese 04/05/2023 PHQ-2 Answer Date Recorded Retired PHQ-9: [...] Description 05/21/2025 1:50 PM EST Office Visit [facility] OBGYN [address] [place] [phone] Osiris Alicia MD 1700 [facility] [address] [place] [address] Health Maintenance Due Date Last Done Comments [...] this topic Medical Devices Implanted Type Area Foot Doctor Device Identifier Shelf Expiration Date Model / [...] IF ASCUS (RICKY,COR,MAD) (05/18/2023 1:43 PM EST) Reference Lab Report [facility] [address] [place] [address] or [phone] Willi Chowdhury M.D., Friend Of The Court PATIENT NAME [facility]AT[facility] NO[facility] ILAN. [id number] AGE SEX SSN CLIENT REF # OSIRIS ALICIA MD 25 1995 F [id number] SOIRIS ALICIA MD REQUESTING Norm. ATTENDING M.D. COPY TO. [address] [facility] [address] [place] [address] DATE COLLECTED DATE RECEIVED DATE REPORTED 05/18/2023 [...] 1 CLINICAL HISTORY: Screening for cervical cancer CHEMICAL LIBRARIAN: GEETA GARCIA (ASCP) CPT CODES: [id number] 05/21/2023 4:41 PM EST [facility] ThinPrep Vial Collection / Unknown 05/18/2023 1:43 PM EST 05/18/2023 1:43 PM EST Osiris Alicia MD PATHOLOGY/CYTOLOGY ORDERAB LES Final Result [facility]
[address] [place] [address], [place] [phone] * Hepatitis C Antibody (09/04/2022 11:32 AM EDT) Hepatitis C Ab Non-Reacti ve Non-Reacti ve 09/04/2022 8:26 PM EDT [facility] Blood Venipuncture / Unknown 09/04/2022 11:32 AM EDT 09/04/2022 11:33 AM EDT Narrative [facility] - 09/04/2022 8:26 PM EDT Results may be falsely decreased if patient taking Biotin. us Osiris Alicia MD LAB BLOOD ORDERABLES Final Result [facility]
[address] [place] [address], [place] [phone] from Last 3 Months or Most Recently Relevant to Health Maintenance Insurance [employer] Advance Directives * CPR (Attempt [...] or is breathing): Full Support Care Teams Photo Studio Assistant Relationship Specialty Start Date End Date Vignesh Strickland DO [address] [place] [address] PCP - General Internal Medicine 02/04/24
--- OUTSIDE RECORDS SUMMARY | 2025-01-16 08:37 | XMS_ITS | Encounter Summary ---
[facility] Address [address] [place] [phone] Care Team Providers Care Compliance Engineer Products Name Role Phone Vignesh Stricklandel Primary Care Provider + Reason for Visit * Reason Comments Med Refill Encounter Details Date Type Department Care Team (Late st Contact Info) Description 01/24/2021 Refill [facility] [address] [place] [address] Liliam Foy, ELEMENTARY ELL TEACHER [address] [facility] [address] [address] [address] [place] [address] 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 Tobacco Use Types Packs/Day Years [...] Description 05/21/2025 1:50 PM EST Office Visit [facility] [address] [facility] [address] [facility] [address] [place] [phone] Toro Valdez MD 1700 [facility] [address] [place] [address] documented as of this encounter Visit Diagnoses Not on filedocumented in this encounter Additional Health Concerns Infection Onset Date Last Indicated Resolved Time COVID Screen (preop/placement) 10/20/2021 10/24/2021 10/24/2021 11:20 PM EDT documented as of this encounter Care Teams Compliance Engineer Products Relationship Specialty Start Date End Date Vignesh Strickland DO [address] [place] [address] PCP - General Internal Medicine 02/04/24 documented as of this encounter
--- OUTSIDE RECORDS SUMMARY | 2025-01-16 08:37 | XMS_ITS | Patient Health Record ---
Author Organization [facility] Address [address] [place] [address] Care Team Providers Care Rn Birthing Name Role Phone Unknown, PCP Primary Care Provider Unavailabl e Reason For Referral No Information Plan Of Treatment No Information Insurance Providers Payer Name Payer Address Payer Phone Subscriber Number Group Number Insured Name Patient Relationship to Insured Coverage Start Date Coverage End Date [facility] [address] [place] [address] [phone] [id number] 01 RASTA LUJAN Self - patient is the insured Medical (General) History Surgical History Surgery Date(Month/Year) Wrist rt 2013 Lasik, bilateral 2018
== END 2025-01-16 23:59 | disposition home or self-care (01) ==
LOC: LAB 08:23
PROVIDERS: PCP Internal Medicine; Visit Provider Student in an Organized Health Care Education/Training Program
DX: E28.2 Polycystic ovarian syndrome (principal)
CPT/HCPCS: 82533

== ENCOUNTER 2025-01-20 08:09 | Outpatient (CLI) | payer OTHER, SELFPAY ==
--- NOTE | 2025-01-20 08:30 | US_ITS ---
FINAL REPORT TECHNIQUE: Sonographic images of the thyroid gland were obtained in the longitudinal and transverse planes. CLINICAL HISTORY: thyromegaly FINDINGS: The right lobe measures 1.8 x 4.6 x 1.3 cm. The right lobe is homogeneous. There are no cystic or solid nodules. The left lobe measures 1.4 x 4.2 x 1.2 cm. The left lobe is homogeneous. There are no cystic or solid nodules. The isthmus measures 3 mm. This is normal. IMPRESSION: Unremarkable thyroid ultrasound. Reviewed, Interpreted and Dictated by Yancy Reaves MD Transcribed by Lilia Arellano Authenticated and [facility]
== END 2025-01-20 23:59 | disposition home or self-care (01) ==
PROVIDERS: PCP Internal Medicine; Visit Provider Nurse Practitioner Family
DX: E01.0 Iodine-deficiency related diffuse (endemic) goiter (principal)
CPT/HCPCS: 76536

== ENCOUNTER 2025-01-23 07:51 | Outpatient (CLI) | payer OTHER, SELFPAY ==
--- OUTSIDE RECORDS SUMMARY | 2021-06-24 14:16 | XMS_ITS | Encounter Summary ---
Author Organization [facility] Address [address] [place] [id number] Care Team Providers Care Personal Care Aide Name Role Phone Dotty Falk APRN Primary Care Provid er Reason for Referral * Diagnostic Imaging (Routine) - Closed Specialty Diagnoses / Procedures Referred By Contac t Referred To Contact Radiology Diagnoses Encounter for supervision of normal first in second trimester Procedures US Ob 14 + Weeks Single or First Gestation Osiris Alicia MD [address] [place] [address] Phone: tel: fax: [facility] Phone: tel: Referral ID Status Reason Start Date Expiration Date Visits Re quested Visits Authorized [id number] Closed 06/07/2021 06/07/2022 1 1 Reason for Visit * Diagnostic Imaging (Routine) - Closed Specialty Diagnoses / Procedures Referred By Contac t Referred To Contact Radiology Diagnoses Encounter for supervision of normal first in second trimester Procedures US Ob 14 + Weeks Single or First Gestation [facility] [place] [address] Phone: tel: fax: [facility] Phone: tel: Referral ID Status Reason Start Date Expiration Date Visits Re quested Visits Authorized [id number] Closed 06/07/2021 06/07/2022 1 1 Encounter Details Date Type Department Care Team (Latest Contact Info) Description 06/24/2021 1:16 PM EST Hospital Encounter [facility] [place] [phone] Encounter for supervision of normal first in second trimester 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 Tobacco Use Types Packs/Day Years Used Date Smoking Tobacco: Never Smokeless Tobacco: Never Alcohol Use Standard Drinks/Week Comments Not Currently 0 (1 standard drink = 0.6 oz pure alcohol) No alcohol since start of meds in June 2020 [facility] Utilities Answer Date Recorded In the past 12 months has th e electric, gas, oil, or water company threatened to shut off services in your home? No 04/05/2023 AUDIT-C Answer Date Recorded Q1: How often do you have a drink containing alcohol? Never 04/05/2023 Q2: How many drinks containi ng alcohol do you have on a typical day when you are drinking? Patient does not drink Q3: How often do you have si x or more drinks on one occasion? Never 04/05/2023 Overall Financial Resource Strain (CARDIA) Answe r Date Recorded How hard is it for you to pa y for the very basics like food, housing, medical care, and heating? Not very hard 04/05/2023 PHQ-2 Answer Date Recorded Retired PHQ-9: Brief Depression Severity Measure Score 0 04/05/2023 Exercise Vital Sign Answer Date Recorde d On average, how many days pe r week do you engage in moderate to strenuous exercise (like a brisk walk)? 0 days 04/05/2023 On average, how many minutes do you engage in exercise at this level? 0 min 04/05/2023 Hunger Vital Sign Answer Date Recorded Within the past 12 months, y ou worried that your food would run out before you got the money to buy more. Never true 04/05/20 23 Within the past 12 months, t he food you bought just didn't last and you didn't have money to get more. Never true 04/05/2023 PRAPARE - Transportation Answer Date Re corded In the past 12 months, has l ack of transportation kept you from medical appointments or from getting medications? No 10/2022 In the past 12 months, has l ack of transportation kept you from meetings, work, or from getting things needed for daily living? No 04/05/2023 [place] Depression Scale Answer Date Recorded Retired [place] Depression Score 5 04/05/2023 Retired EPD Scale: Thought of Harming Self Unrec ognized value 04/05/2023 Abuse Screen Answer Date Recorded Feels Unsafe at Home or Work/School no 04/05/2023 Feels Threatened by Someone no 10/2022 Does Anyone Try to Keep You From Having Contact with Others or Doing Things Outside Your Home? no 04/05/2023 Physical Signs of Abuse Present no 04/05/2023 Housing Stability Answer Date Recorded Current Living Arrangements home 10/2022 Potentially Unsafe Housing Conditions none 04/05/2023 Family and Community Support Answer Amparo e Recorded If for any reason you need h elp with day-to-day activities such as bathing, preparing meals, shopping, managing finances, etc., do you get the help you need? I get all the help I need 04/05/2023 How often do you feel lonely or isolated from those around you? Never 04/05/2023 Employment Answer Date Recorded Do you want help finding or keeping work or a job? I do not need or want help 04/05/2023 Disabilities Answer Date Recorded Difficulty Concentrating, Remembering or Making Decisions no 04/05/2023 Difficulty Managing Errands Independently no 04/05/2023 Education Answer Date Recorded Do you want help with school or training? For example, starting or completing job training or getting a high school diploma, GED or equivalent No 04/05/2023 Preferred Language Prydeinig 04/05/2023 PHQ-2 Answer Date Recorded Retired PHQ-9: Brief Depression Severity Measure Score 0 04/05/2023 Education Answer Date Recorded What is the highest level of school you have completed or the highest degree you have received? Associate degree: academic program 07/25/2021 Comments Unknown Sex and Gender Information Value Date Recorded Sex Assigned at Not on file Legal Sex Female 11:45 AM EDT Gender Identity Not on file Sexual Orientation Not on file documented as of this encounter Functional Status * Audit-C Score Answer Date of Assessment Author 0 04/05/2023 7:25 AM Krystal Yap RN * Question Answer Date of Assessment Author Q1: How often do you have a drink containing alcohol? Never 04/05/2023 7:25 AM Ronnie Yap RN Q2: How many drinks containing alcohol do you have on a typical day when you are drinking? Patient does not drink 04/05/2023 7:25 AM Ronnie Yap RN Q3: How often do you have six or more drinks on one occasion? Never 04/05/2023 7:25 AM Ronnie Yap RN documented as of this encounter Plan of Treatment Upcoming Encounters Date Type Department Care Team (Late st Contact Info) Description 05/21/2025 1:50 PM EST Office Visit [facility] OBGYN [address] [facility] [address] [place] [phone] Osiris Alicia MD [address] [facility] [address] [place], [place] [address] documented as of this encounter Procedures Procedure Name Priority Date/Time Associated Diagnosis Comments US OB 14 + WEEKS SINGLE OR FIRST GESTATION Routine 06/24/2021 2:02 PM EST Encounter for supervision of normal first in second trimester documented in this encounter Results * US Ob 14 + Weeks Single or First Gestation (06/24/2021 2:02 PM EST) Anatomical Region Laterality Modality Body Ultrasound 06/24/2021 1:45 PM EST Narrative 06/26/2021 8:30 AM EST PAT NAME: RASTA ARBOLEDA MED REC#: [id number] DA: [id number] PAT GEND: F PAT TYPE: O EXAM AMPARO: [id number] REF PHYS OSIRIS ALICIA Indication ======== anatomy survey Comparison Studies There are no relevant prior studies to which this study is being compared Method ======= Voluson E6, Transabdominal ultrasound examination. View: Sufficient view ========= Elena . Number of fetuses: 1 Dating ====== Method of dating: based on stated EMANUEL GA by prior assessment 21 w + 1 d EMANUEL by prior assessment: 11/03/2021 Ultrasound examination on: 06/24/2021 GA by U/S based upon: AC, BPD, Femur, HC GA by U/S 21 w + 5 d EMANUEL by U/S: 10/30/2021 Assigned: based on stated EMANUEL, selected on 06/24/2021 Assigned GA 21 w + 1 d Assigned EMANUEL: 11/03/2021 length 280 d General Evaluation Cardiac activity present. FHR 153 bpm. movements present. Presentation cephalic. Placenta Placental site: anterior. Umbilical cord Cord vessels: 3 vessel cord. Amniotic fluid Amount of AF: normal. Biometry Standard BPD 52.8 mm 22w 0d 81% Hadlock HC 200.5 mm 22w 1d 83% Hadlock Cerebellum tr 22.7 mm 21w 1d 64% Hill AC 162.1 mm 21w 2d 48% Hadlock Femur 35.5 mm 21w 2d 44% Hadlock HC / AC 1.24 EFW 420 g EFW (lb) 0 lb EFW (oz) 15 oz EFW by: Hadlock ([id number]) Extended Senior Recruiter 5.6 mm CM 4.2 mm 17% Nicolaides Extremities / Bony Struc FL / BPD 0.67 FL / HC 0.18 FL / AC 0.22 Other Structures FHR 153 bpm Anatomy Cranium: Appears normal Lateral ventricles: Appears normal Choroid plexus: Appears normal Midline falx: Appears normal Cavum septi pellucidi: Appears normal Cerebellum: Appears normal Cisterna magna: Appears normal Lips: Appear normal Profile: Appears normal Nose: Appears normal 4-chamber view: Appears normal RVOT view: Appears normal LVOT view: Appears normal Heart / Thorax 3-vessel view: Appears normal 2-nzpdth-skzcyze view: Appears normal Diaphragm: Appears normal Diaphragm: Intact Cord insertion: Appears normal Stomach: Appears normal Kidneys: Appears normal Bladder: Appears normal Abdomen Abdom. wall: Abdominal wall is intact Stomach: left-sided Cervical spine: suboptimal Thoracic spine: suboptimal Lumbar spine: Appears normal Sacral spine: Appears normal Arms: Appears normal Legs: Appears normal Rt arm: Appears normal Lt arm: Appears normal Rt hand: Appears normal Lt hand: Appears normal Rt leg: Appears normal Lt leg: Appears normal Rt foot: Appears normal Lt foot: Appears normal Gender: male Wants to know gender: yes Maternal Structures Uterus / Cervix Uterus: Visualized Cervix: Visualized Ovaries / Tubes / Adnexa Rt ovary: Visualized Lt ovary: Visualized Impression ========= Single viable intrauterine with normal cardiac activity and biometry consistent with clinical dates No structural abnormalities are seen on today's scan. Anatomic survey is incomplete. Recommendation If needed clinically, the patient should return at a subsequent visit to complete the anatomic screening Data Integrity Specialist: Sara Ortez RDMS Physician: Osiris Alicia MD Electronically signed by: Osiris Alicia MD at: 08:30 Procedure Note Osiris Alicia MD - 06/26/2021 PAT NAME: RASTA ARBOLEDA MED REC#: [id number] DA: [id number] PAT GEND: F PAT TYPE: O EXAM AMPARO: [id number] REF PHYS OSIRIS ALICIA Indication ======== anatomy survey Comparison Studies There are no relevant prior studies to which this study is beingcompared Method ======= Voluson E6, Transabdominal ultrasound examination. View: Sufficient view ========= Elena . Number of fetuses: 1 Dating ====== Method of dating:based on stated EMANUEL GA by prior [id number] w + 1 d EMANUEL by prior assessment:11/03/2021 Ultrasound examination on:06/24/2021 GA by U/S based upon:AC, BPD, Femur, HC GA by U/S21 w + 5 d EMANUEL by U/S:10/30/2021 Assigned:based on stated EMANUEL, selected on 06/24/2021 Assigned GA21 w + 1 d Assigned EMANUEL:11/03/2021 d General Evaluation Cardiac activity present. FHR 153 bpm. movements present. Presentation cephalic. Placenta Placental site: anterior. Umbilical cord Cord vessels: 3 vessel cord. Amniotic fluid Amount of AF: normal. Biometry Standard BPD52.8 mm 22w 0d 81% Hadlock HC200.5 mm 22w 1d 83% Hadlock Cerebellum tr22.7 mm 21w 1d 64% Hill AC162.1 mm 21w 2d 48% Hadlock Femur35.5 mm 21w 2d 44% Hadlock HC / AC1.24 [id number] g EFW (lb)0 lb EFW (oz)15 oz EFW by:Hadlock ([id number]) Extended Vp5.6 mm CM4.2 mm 17% Nicolaides Extremities / Bony Struc FL / BPD0.67 FL / HC0.18 FL / AC0.22 Other Structures [id number] bpm Anatomy Cranium:Appears normal Lateral ventricles:Appears normal Choroid plexus:Appears normal Midline falx:Appears normal Cavum septi pellucidi:Appears normal Cerebellum:Appears normal Cisterna magna:Appears normal Lips:Appear normal Profile:Appears normal Nose:Appears normal 4-chamber view:Appears normal RVOT view:Appears normal LVOT view:Appears normal Heart / Thorax 3-vessel view:Appears normal 5-mxbcua-ynijnkw view:Appears normal Diaphragm:Appears normal Diaphragm:Intact Cord insertion:Appears normal Stomach:Appears normal Kidneys:Appears normal Bladder:Appears normal Abdomen Abdom. wall:Abdominal wall is intact Stomach:left-sided Cervical spine:suboptimal Thoracic spine:suboptimal Lumbar spine:Appears normal Sacral spine:Appears normal Arms:Appears normal Legs:Appears normal Rt arm:Appears normal Lt arm:Appears normal Rt hand:Appears normal Lt hand:Appears normal Rt leg:Appears normal Lt leg:Appears normal Rt foot:Appears normal Lt foot:Appears normal Gender:male Wants to know gender:yes Maternal Structures Uterus / Cervix Uterus:Visualized Cervix:Visualized Ovaries / Tubes / Adnexa Rt ovary:Visualized Lt ovary:Visualized Impression ========= Single viable intrauterine with normal cardiac activity andbiometry consistent with clinical dates No structural abnormalities are seen on today's scan. Anatomicsurvey is incomplete. Recommendation If needed clinically, the patient should return at a subsequent visit tocomplete the anatomic screening Data Integrity Specialist: Sara Ortez RDMS Physician: Osiris Alicia MD Electronically signed by: Osiris Alicia MD at: 08:30 us Osiris Alicia MD IMG US ORDERABLES Final Re sult documented in this encounter Visit Diagnoses Diagnosis Encounter for supervision of normal first in second trimester documented in this encounter Additional Health Concerns Infection Onset Date Last Indicated Resolved Time COVID Screen (preop/placement) 10/20/2021 10/24/2021 10/24/2021 11:20 PM EDT documented as of this encounter Care Teams Personal Care Aide Relationship Specialty Start Date End Date Dotty Falk APRN [address] [place] [facility] [address] [facility] [place] [address] PCP - General Family Medicine 10/13/16 07/25/22 documented as of this encounter
--- OUTSIDE RECORDS SUMMARY | 2021-07-22 08:27 | XMS_ITS | Encounter Summary ---
Author Organization [facility] Address [address] [place] [id number] Care Team Providers Care Zipper Trimmer Name Role Phone Dotty Falk APRN Primary Care Provid er Reason for Referral * Diagnostic Imaging (Routine) - Closed Specialty Diagnoses / Procedures Referred By Contac t Referred To Contact Radiology Diagnoses Encounter for supervision of normal first in second trimester Procedures US Ob Follow Up Transabdominal Approach Osiris Alicia MD [address] [place] [address] Phone: tel: fax: [facility] Phone: tel: Referral ID Status Reason Start Date Expiration Date Visits Re quested Visits Authorized [id number] Closed 06/24/2021 06/24/2022 1 1 Reason for Visit * Diagnostic Imaging (Routine) - Closed Specialty Diagnoses / Procedures Referred By Contac t Referred To Contact Radiology Diagnoses Encounter for supervision of normal first in second trimester Procedures US Ob Follow Up Transabdominal Approach Osiris Alicia MD [address] [place] [address] Phone: tel: fax: [facility] Phone: tel: Referral ID Status Reason Start Date Expiration Date Visits Re quested Visits Authorized [id number] Closed 06/24/2021 06/24/2022 1 1 Encounter Details Date Type Department Care Team (Latest Contact Info) Description 07/22/2021 8:27 AM EDT Hospital Encounter NERY GRANGER [facility] [place] [phone] Encounter for supervision of normal first in second trimester 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 Tobacco Use Types Packs/Day Years Used Date Smoking Tobacco: Never Smokeless Tobacco: Never Alcohol Use Standard Drinks/Week Comments Not Currently 0 (1 standard drink = 0.6 oz pure alcohol) No alcohol since start of meds in June 2020 [facility] Utilities Answer Date Recorded In the [...] things needed for daily living? No 04/05/2023 [place] Depression Scale Answer Date Recorded Retired [place] Depression Score 5 04/05/2023 Retired EPD Scale: [...] none 04/05/2023 Family and Community Support Answer Wilner e Recorded If for any reason you [...] GED or equivalent No 04/05/2023 Preferred Language [place] Islander 04/05/2023 PHQ-2 Answer Date Recorded Retired [...] Description 05/21/2025 1:50 PM EST Office Visit [facility] [address] [facility] [address] [place] [address] Osiris Alicia MD [address] [facility] [address] [place] [address] documented as of this encounter Procedures Procedure Name Priority Date/Time Associated Diagnosis Comments US OB FOLLOW UP TRANSABDOMINAL APPROACH Routine 07/22/2021 9:07 AM EDT Encounter for supervision of normal first in second trimester documented in this encounter Results * US Ob Follow Up Transabdominal Approach (07/22/2021 9:07 AM EDT) Anatomical Region Laterality Modality Body Ultrasound 07/22/2021 8:38 AM EDT Narrative 07/22/2021 6:15 PM EDT PAT NAME: RASTA ARBOLEDA MED REC#: [id number] DA: [id number] PAT GEND: F PAT TYPE: O EXAM WILNER: [id number] REF PHYS OSIRIS ALICIA Indication ======== Follow-up evaluation for anatomy scan due to position Comparison Studies There are no relevant prior studies to which this study is being compared Method ======= Voluson E6, Transabdominal ultrasound examination. View: Adequate view ========= Elena . Number of fetuses: 1 Dating ====== Method of dating: Restore dating from previous exam Previous dating: based on stated EMANUEL, selected on 06/24/2021 Agreed EMANUEL of previous datin11/03/2021 Assigned: based on stated EMANUEL, selected on 06/24/2021 Assigned GA 25 w + 1 d Assigned EMANUEL: 11/03/2021 length 280 d General Evaluation Cardiac activity present. FHR 144 bpm. movements visualized. Presentation cephalic. Placenta Placental site: anterior. Amniotic fluid Amount of AF: normal. Anatomy Lateral ventricles: Appears normal 4-chamber view: Appears normal Stomach: Appears normal Kidneys: Appears normal Bladder: Appears normal Cervical spine: Appears normal Thoracic spine: Appears normal Gender: male Wants to know gender: yes Impression ========= No structural abnormalities are seen on today's scan. Anatomic survey is now complete. Recommendation Follow-up scan as clinically indicated Dental Officer: Aline Russell RDMS Physician: Osiris Alicia MD Electronically signed by: Osiris Alicia MD at: 18:15 Procedure Note Osiris Alicia MD - 07/22/2021 PAT NAME: GRAHAM ARBOLEDAA [facility] REC#: [id number] DA: [id number] PAT GEND: F PAT TYPE: O EXAM WILNER: [id number] REF PHYS OSIRIS ALICIA Indication ======== Follow-up evaluation for anatomy scan due to position Comparison Studies There are no relevant prior studies to which this study is beingcompared Method ======= Voluson E6, Transabdominal ultrasound examination. View: Adequate view ========= Elena . Number of fetuses: 1 Dating ====== Method of dating:Restore dating from previous exam Previous dating:based on stated EMANUEL, selected on 06/24/2021 Agreed EMANUEL of previous datin11/03/2021 Assigned:based on stated EMANUEL, selected on 06/24/2021 Assigned GA25 w + 1 d Assigned EMANUEL:11/03/2021 [id number] d General Evaluation Cardiac activity present. FHR 144 bpm. movements visualized. Presentation cephalic. Placenta Placental site: anterior. Amniotic fluid Amount of AF: normal. Anatomy Lateral ventricles:Appears normal 4-chamber view:Appears normal Stomach:Appears normal Kidneys:Appears normal Bladder:Appears normal Cervical spine:Appears normal Thoracic spine:Appears normal Gender:male Wants to know gender:yes Impression ========= No structural abnormalities are seen on today's scan. Anatomicsurvey is now complete. Recommendation Follow-up scan as clinically indicated Dental Officer: Aline Russell RDMS Physician: Osiris Alicia MD Electronically signed by: Osiris Alicia MD at: 18:15 us Osiris Alicia MD IMG US ORDERABLES Final Re sult documented in this encounter Visit Diagnoses Diagnosis Encounter for supervision of normal first in second trimester documented in this encounter Additional Health Concerns Infection Onset Date Last Indicated Resolved Time COVID Screen (preop/placement) 10/20/2021 10/24/2021 10/24/2021 11:20 PM EDT documented as of this encounter Care Teams Zipper Trimmer Relationship Specialty Start Date End Date Dotty Falk APRN [address] [place] [address] [place] [address] [place] [address] PCP - General Family Medicine 10/13/16 07/25/22 documented as of this encounter
--- OUTSIDE RECORDS SUMMARY | 2022-09-04 09:26 | XMS_ITS | Encounter Summary ---
Author Organization [facility] Address [address] [place] [id number] Care Team Providers Care Director Of Loss Prevention Name Role Phone Cipriano Frias MD Primary Care Provider [phone] Reason for Referral * Diagnostic Imaging (Routine) - Closed Specialty Diagnoses / Procedures Referred By Contac t Referred To Contact Radiology Diagnoses Encounter to determine viability of , single or unspecified fetus Procedures US OB Transvaginal Osiris Alicia MD [address] [place] [address] Phone: tel: fax: [facility] Phone: tel: Referral ID Status Reason Start Date Expiration Date Visits Re quested Visits Authorized [id number] Closed 08/30/2022 08/30/2023 1 1 Reason for Visit * Diagnostic Imaging (Routine) - Closed Specialty Diagnoses / Procedures Referred By Contac t Referred To Contact Radiology Diagnoses Encounter to determine viability of , single or unspecified fetus Procedures US OB Transvaginal Osiris Alicia MD [address] [facility] [place] [address] Phone: tel: fax: [facility] Phone: tel: Referral ID Status Reason Start Date Expiration Date Visits Re quested Visits Authorized [id number] Closed 08/30/2022 08/30/2023 1 1 Encounter Details Date Type Department Care Team (Latest Contact Info) Description 09/04/2022 9:26 AM EDT Hospital Encounter [facility] [place] [phone] Encounter to determine viability of , single or unspecified fetus 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 Tobacco Use Types Packs/Day Years Used Date Smoking Tobacco: Never Smokeless Tobacco: Never Alcohol Use Standard Drinks/Week Comments Not Currently 0 (1 standard drink = 0.6 oz pure alcohol) No alcohol since start of meds in June 2020 [facility] Utilities Answer Date Recorded In the past 12 months has th e [employer], gas, oil, or water [facility] threatened to shut off services in your [...] things needed for daily living? No 04/05/2023 [place] Depression Scale Answer Date Recorded Retired [place] Depression Score 5 04/05/2023 Retired EPD Scale: [...] GED or equivalent No 04/05/2023 Preferred Language South African 04/05/2023 PHQ-2 Answer Date Recorded Retired PHQ-9: [...] [facility] [address] [facility] [address] [place] [phone] Osiris Alicia MD [address] [address] documented as of this encounter Procedures Procedure [...] EDT PAT NAME: RASTA ARBOLEDA MED REC#: [id number] DA: [id number] PAT GEND: F PAT TYPE: O EXAM WILNER: [id number] REF PHYS OSIRIS ALICIA Indication ======== viability [...] clinical dates Recommendation Follow-up as clinically indicated. Affirmative Action Officer: Aline Russell RDMS Physician: Osiris Alicia MD Electronically signed by: Osiris Alicia MD at: 07:29 Procedure Note Osiris Alicia MD - 09/05/2022 PAT NAME: RASTA ARBOLEDA MED REC#: [id number] DA: [id number] PAT GEND: F PAT TYPE: O EXAM WILNER: [id number] REF PHYS OSIRIS ALICIA Indication ======== viability [...] GA8 w + 5 d Assigned EMANUEL:04/11/2023 [id number] d Assessment Gestational sac:visualized Location:intrauterine Yolk sac:visualized Embryo:visualized CRL18.0 mm 8w 2d 16% Hadlock Cardiac activity:present [id number] bpm Placenta:Too early to evaluate Maternal Structures Uterus / Cervix Uterus:Visualized Cervix:Visualized Ovaries / Tubes / Adnexa Rt ovary:Visualized Lt ovary:Visualized Lt ovarian corpus luteum:a well circumscribed unilocular cyst withperipheral Doppler flow is present - typical of a corpus luteum Impression ========= Single viable intrauterine with normal cardiac activity andbiometry consistent with clinical dates Recommendation Follow-up as clinically indicated. Affirmative Action Officer: Aline Russell RDMS Physician: Osiris Alicia MD Electronically signed by: Osiris Alicia MD at: 07:29 us Osiris Alicia MD IMG US ORDERABLES Final Re sult documented in this encounter Visit Diagnoses Diagnosis Encounter to determine viability of , single or unspecified fetus documented in this encounter Care Teams Director Of Loss Prevention Relationship Specialty Start Date End Date Cipriano Frias MD [address] [place] [address] PCP - General Family Medicine 07/26/22 02/03/24 documented as of this encounter
--- OUTSIDE RECORDS SUMMARY | 2022-11-23 13:21 | XMS_ITS | Encounter Summary ---
Author Organization [facility] Address [address] [place] [address] Care Team Providers Care Mushroom Spawn Maker Name Role Phone Cipriano Frias MD Primary Care Provider [phone] Reason for Referral * Diagnostic Imaging (Routine) - Closed Specialty Diagnoses / Procedures Referred By Contac t Referred To Contact Radiology Diagnoses 16 weeks gestation of Procedures US Ob 14 + Weeks Single or First Gestation Eren Sauceda CNM [address] [place] [address] Phone: tel: fax: [facility] Phone: tel: Referral ID Status Reason Start Date Expiration Date Visits Re quested Visits Authorized [id number] Closed 10/26/2022 10/26/2023 1 1 Reason for Visit * Diagnostic Imaging (Routine) - Closed Specialty Diagnoses / Procedures Referred By Contac t Referred To Contact Radiology Diagnoses 16 weeks gestation of Procedures US Ob 14 + Weeks Single or First Gestation Eren Sauceda CNM [address] [facility] [address] [place], [place] [address] Phone: tel: fax: [facility] Phone: tel: Referral ID Status Reason Start Date Expiration Date Visits Re quested Visits Authorized [id number] Closed 10/26/2022 10/26/2023 1 1 Encounter Details Date Type Department Care Team (Latest Contact Info) Description 11/23/2022 1:21 PM EDT Hospital Encounter [facility] [place] [phone] 16 weeks gestation of 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 Tobacco Use Types Packs/Day Years Used Date Smoking Tobacco: Never Smokeless Tobacco: Never Alcohol Use Standard Drinks/Week Comments Not Currently 0 (1 standard drink = 0.6 oz pure alcohol) No alcohol since start of meds in June 2020 [facility] Utilities Answer Date Recorded In the past 12 months has th e [employer], gas, oil, or water [employer] threatened to shut off services in your [...] things needed for daily living? No 04/05/2023 [place] Depression Scale Answer Date Recorded Retired [place] Depression Score 5 04/05/2023 Retired EPD Scale: [...] GED or equivalent No 04/05/2023 Preferred Language Cambodian 04/05/2023 PHQ-2 Answer Date Recorded Retired PHQ-9: [...] Description 05/21/2025 1:50 PM EST Office Visit [facility] OBGYN [address] [facility] [address] [place] [address] [phone] Toro Valdez MD [address] [facility] [address] [place] [address] documented as of this encounter Procedures Procedure [...] EDT PAT NAME: RASTA ARBOLEDA MED REC#: [id number] DA: [id number] PAT GEND: F PAT TYPE: O EXAM AMPARO: [id number] REF PHYS EREN SAUCEDA Indication ======== anatomy [...] EFW (oz) 10 oz EFW by: Hadlock (PLA-QW-FL-FL) Head / Face / Neck Cephalic index [...] Heart / Thorax 3-vessel view: Appears normal 8-uuhkcr-jninmtn view: Appears normal Diaphragm: Appears normal Diaphragm: [...] subsequent visit to complete the anatomic screening. Battery Charger Tester: Vida Posadas RDTN Physician: Toro Valdez MD Electronically signed by: Toro Valdez MD at: 09:41 Procedure Note Toro Valdez MD - 11/24/2022 PAT NAME: ARBOLEDARASTA MED REC#: [id number] DA: [id number] PAT GEND: F PAT TYPE: O EXAM AMPARO: [id number] REF PHYS EREN SAUCEDA Indication ======== anatomy survey Comparison Studies There are no relevant prior studies to which this study is beingcompared History ====== Previous Outcomes Gravida2 Para1 Method ======= Voluson E6, Transabdominal ultrasound examination. View: Sufficient view ========= Elena . Number of fetuses: 1 Dating ====== LMP on:07/05/2022 GA by LMP20 w + 1 d EMANUEL by LMP:04/11/2023 GA by prior [email or web address] w + 1 d EMANUEL by prior [...] GA20 w + 1 d Assigned EMANUEL:04/11/2023 [id number] d General Evaluation Cardiac activity present. FHR [...] 10% Hadlock HC / AC1.18 62% Hadlock NVB060 g EFW (lb)0 lb EFW (oz)10 oz EFW by:Hadlock (SRO-ZI-JR-FL) Head / Face / Neck Cephalic index0.70 <1% Nicolaides Extremities / Bony Struc FL / BPD0.69 37% Hadlock FL / HC0.18 24% Hadlock FL / AC0.21 22% Hadlock Other Structures OSR433 bpm Anatomy Cranium:Appears normal Lateral ventricles:Appears normal Choroid plexus:Appears normal Midline falx:Appears normal Cavum septi pellucidi:Appears normal Cerebellum:Appears normal Cisterna magna:Appears normal Lips:Appear normal Profile:Appears normal Nose:Appears normal 4-chamber view:Appears normal RVOT view:Appears normal LVOT view:Appears normal Heart / Thorax 3-vessel view:Appears normal 5-bzgkob-tetunhc view:Appears normal Diaphragm:Appears normal Diaphragm:Intact Cord insertion:Appears [...] a subsequent visit tocomplete the anatomic screening. Battery Charger Tester: Vida Posadas RDMS Physician: Toro Valdez MD Electronically signed by: Toro Valdez MD at: 09:41 Eren Sauceda [facility] US ORDERABLES Final Resul t documented in this encounter Visit Diagnoses Diagnosis 16 weeks gestation of documented in this encounter Care Teams Mushroom Spawn Maker Relationship Specialty Start Date End Date Cipriano Frias MD [address] [place] [phone] PCP - General Family Medicine 07/26/22 02/03/24 documented as of this encounter
--- OUTSIDE RECORDS SUMMARY | 2022-12-21 11:43 | XMS_ITS | Encounter Summary ---
Author Organization [facility] Address [address] [place] [address] Care Team Providers Care Tooling Supervisor Name Role Phone Cipriano Frias MD Primary Care Provider [phone] Reason for Referral * Diagnostic Imaging (Routine) - Closed Specialty Diagnoses / Procedures Referred By Contac t Referred To Contact Radiology Diagnoses care, subsequent in second trimester Procedures US Ob Follow Up Transabdominal Approach Osiris Alicia MD [address] [place] [address] Phone: tel: fax: Referral ID Status Reason Start Date Expiration Date Visits Re quested Visits Authorized [id number] Closed 11/23/2022 11/23/2023 1 1 Reason for Visit * Diagnostic Imaging (Routine) - Closed Specialty Diagnoses / Procedures Referred By Contac t Referred To Contact Radiology Diagnoses care, subsequent in second trimester Procedures US Ob Follow Up Transabdominal Approach Osiris Alicia MD [address] [place] [address] Phone: tel: fax: Referral ID Status Reason Start Date Expiration Date Visits Re quested Visits Authorized [id number] Closed 11/23/2022 11/23/2023 1 1 Encounter Details Date Type Department Care Team (Latest Contact Info) Description 12/21/2022 11:43 AM EDT Hospital Encounter [facility] [phone] care, subsequent in second trimester 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 Tobacco Use Types Packs/Day Years Used Date Smoking Tobacco: Never Smokeless Tobacco: Never Alcohol Use Standard Drinks/Week Comments Not Currently 0 (1 standard drink = 0.6 oz pure alcohol) No alcohol since start of meds in June 2020 [facility] Utilities Answer Date Recorded In the past [...] things needed for daily living? No 04/05/2023 [place] Depression Scale Answer Date Recorded Retired [place] Depression Score 5 04/05/2023 Retired EPD Scale: [...] GED or equivalent No 04/05/2023 Preferred Language Albanian 04/05/2023 PHQ-2 Answer Date Recorded Retired PHQ-9: [...] Description 05/21/2025 1:50 PM EST Office Visit [facility] OBGYN [address] [facility] [address] [place] [address] Osiris Alicia MD [address] [facility] [address] [place] [phone] documented as of this encounter Procedures Procedure [...] EDT PAT NAME: RASTA LUJAN MED REC#: [id number] DA: [id number] PAT GEND: F PAT TYPE: O EXAM AMPARO: [id number] REF PHYS OSIRIS ALICIA Indication ======== Follow-up [...] complete. Recommendation Follow-up scan as clinically indicated. Scaffold Setter: Aline Russell RDMS Physician: Osiris Alicia MD Electronically signed by: Osiris Alicia MD at: 07:16 Procedure Note Osiris Alicia MD - 12/22/2022 PAT NAME: RASTA LUJAN MED REC#: [id number] DA: [id number] PAT GEND: F PAT TYPE: O EXAM AMPARO: [id number] REF PHYS OSIRIS ALICIA Indication ======== Follow-up [...] GA24 w + 1 d Assigned EMANUEL:04/11/2023 [id number] d General Evaluation Cardiac activity present. FHR [...] complete. Recommendation Follow-up scan as clinically indicated. Scaffold Setter: Aline Russell RDMO Physician: Osiris Alicia MD Electronically signed by: Osiris Alicia MD at: 07:16 us Osiris Alicia MD IMG US ORDERABLES Final Re sult documented in this encounter Visit Diagnoses Diagnosis care, subsequent in second trimester documented in this encounter Care Teams Tooling Supervisor Relationship Specialty Start Date End Date Cipriano Frias MD [address] [place] [address] PCP - General Family Medicine 07/26/22 02/03/24 documented as of this encounter
--- OUTSIDE RECORDS SUMMARY | 2024-09-29 11:18 | XMS_ITS | Encounter Summary ---
[facility] [address] [place] [address] Care Team Providers Care Instrument Setter Name Role Phone Vignesh Strickland DO Primary Care Provider + Reason for Referral * Diagnostic Imaging (Routine) - Closed Specialty Diagnoses / Procedures Referred By Contact Referred To Contact Obstetrics and Gynecology Diagnoses Bloating Procedures US Non-ob Transvaginal Osiris Alicia MD [address] [place] [address] Phone: tel: fax: [facility] [address] [address] Phone: tel: fax: Referral ID Status Reason Start Date Expiration Date Visits Re quested Visits Authorized [id number] Closed 09/23/2024 12/23/2025 1 1 Reason for Visit * Diagnostic Imaging (Routine) - Closed Specialty Diagnoses / Procedures Referred By Contact Referred To Contact Obstetrics and Gynecology Diagnoses Bloating Procedures US Non-ob Transvaginal Osiris Alicia MD [address] [place] [address] Phone: tel: fax: [facility] [address] [address] Phone: tel: fax: Referral ID Status Reason Start Date Expiration Date Visits Re quested Visits Authorized [id number] Closed 09/23/2024 12/23/2025 1 1 Encounter Details Date Type Department Care Team (Mira kelly Contact Info) Description 09/29/2024 11:18 AM EDT Hospital Encounter [facility] [place] [phone] Bloating 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 Tobacco Use Types Packs/Day Years Used Date Smoking Tobacco: Never Smokeless Tobacco: Never Alcohol Use Standard Drinks/Week Comments Not Currently 0 (1 standard drink = 0.6 oz pure alcohol) No alcohol since start of meds in June 2020 [facility] Utilities Answer Date Recorded In [...] things needed for daily living? No 04/05/2023 [place] Depression Scale Answer Date Recorded Retired [place] Depression Score 5 04/05/2023 Retired EPD Scale: [...] GED or equivalent No 04/05/2023 Preferred Language Bahraini 04/05/2023 PHQ-2 Answer Date Recorded Retired PHQ-9: [...] 05/21/2025 1:50 PM EST Office Visit [facility] [address] [facility] [address] [address] [place] [address] Osiris Alicia MD [address]00 [facility] [address] [place] [address] documented as of this encounter Procedures Procedure Name Priority Date/Time Associated Diagnosis Comments US NON-OB TRANSVAGINAL Routine 09/29/2024 11:58 AM EDT Bloating documented in this encounter Results * US Non-ob Transvaginal (09/29/2024 11:58 AM EDT) Anatomical Region Laterality Modality Body Ultrasound 09/29/2024 11:4 9 AM EDT Narrative 10/02/2024 1:12 PM EDT PAT NAME: RASTA ARBOLEDA MED REC#: [id number] DA: [id number] PAT GEND: F PAT TYPE: O EXAM AMPARO: [id number] REF PHYS OSIRIS ALICIA Indication ======== Bloating [...] pelvic ultrasound Recommendation Follow-up as clinically indicated. Oral Surgery Physician: Vida Posadas RDMS Physician: Osiris Alicia MD Electronically signed by: Osiris Alicia MD at: 13:12 Procedure Note Osiris Alicia MD - 10/02/2024 PAT NAME: RASTA ARBOLEDA MED REC#: [id number] DA: [id number] PAT GEND: F PAT TYPE: O EXAM AMPARO: [id number] REF PHYS OSIRIS ALICIA Indication ======== Bloating [...] Vol45.4 cm Endometrial thickness, total3.2 mm Cervical qtypaw82.0 mm Right Ovary Rt ovary:Normal Rt ovary D134.7 mm Rt ovary D215.9 mm Rt ovary D314.5 mm Rt ovary Vol4.2 cm Left Ovary ========= Lt ovary:Normal Lt ovary D138.0 mm Lt ovary D216.4 mm Lt ovary D320.00 mm Lt ovary Vol6.5 cm Cul de Sac ========= Visualized. Free fluid visualized: mild Impression ========= Normal pelvic ultrasound Recommendation Follow-up as clinically indicated. Oral Surgery Physician: Vida Posadas RDMS Physician: Osiris Alicia MD Electronically signed by: Osiris Alicia MD at: 13:12 us Osiris Alicia MD IMG US ORDERABLES Final Re sult documented in this encounter Visit Diagnoses Diagnosis Bloating Flatulence, eructation, and gas pain documented in this encounter Care Teams Instrument Setter Relationship Specialty Start Date End Date Vignesh Strickland DO [address] [place] [address] PCP - General Internal Medicine 02/04/24 documented as of this encounter
--- OUTSIDE RECORDS SUMMARY | 2025-01-23 07:54 | XMS_ITS | Patient Health Record ---
Author Organization [facility] Address [address] [place] [address] Care Team Providers Care Concrete Stone Fabricator Name Role Phone Unknown, PCP Primary Care Provider Unavailabl e Reason For Referral No Information Plan Of Treatment No Information Insurance Providers Payer Name Payer Address Payer Phone Subscriber Number Group Number Insured Name Patient Relationship to Insured Coverage Start Date Coverage End Date [facility] [address] [place] [address] [phone] [id number] 01 RASTA LUJAN Self - patient is the insured Medical (General) History Surgical History Surgery Date(Month/Year) Wrist rt 2013 Lasik, bilateral 2018
--- OUTSIDE RECORDS SUMMARY | 2025-01-23 07:54 | XMS_ITS | Encounter Summary ---
[facility] Organization [facility] Address [address] [place] [phone] Care Team Providers Care Pharmacist Apprentice Name Role Phone Vignesh Strickland DO Primary Care Provider + Encounter Details Date Type Department Care Team (Late st Contact Info) Description 10/15/2024 Results Follow-Up [facility] OBGYN [address] [phone] Toro Valdez MD 1700 [facility] [address] [place] [address] 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 Tobacco Use Types Packs/Day Years Used Date Smoking Tobacco: Never Smokeless Tobacco: Never Alcohol Use Standard Drinks/Week Comments Not Currently 0 (1 standard drink = 0.6 oz pure alcohol) No alcohol since start of meds in June 2020 [facility] Utilities Answer Date Recorded In the past 12 months has [employer], oil, or water [employer] threatened to shut off services in your [...] things needed for daily living? No 04/05/2023 [place] Depression Scale Answer Date Recorded Retired [place] Depression Score 5 04/05/2023 Retired EPD Scale: [...] GED or equivalent No 04/05/2023 Preferred Language Spanish 04/05/2023 PHQ-2 Answer Date Recorded Retired PHQ-9: [...] Description 05/21/2025 1:50 PM EST Office Visit [facility] OBGYN [address] [address] Toro Valdez MD [address] [place] [phone] documented as of this encounter Visit Diagnoses Not on filedocumented in this encounter Care Teams Pharmacist Apprentice Relationship Specialty Start Date End Date Vignesh Strickland DO [address] [place] [address] PCP - General Internal Medicine 02/04/24 documented as of this encounter
--- OUTSIDE RECORDS SUMMARY | 2025-01-23 07:54 | XMS_ITS | Encounter Summary ---
[facility] Address [address] [place] [id number] Care Team Providers Care Digital Marketing Apprentice Name Role Phone Vignesh Stricklandel Primary Care Provider + Reason for Visit * Reason Comments Med Refill Encounter Details Date Type Department Care Team (Late st Contact Info) Description 01/24/2021 Refill [facility] O[facility]YN [address] [place] [address] Liliam Foy, SORORITY SUPERVISOR [address] [facility] [address] [place] [address] 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 Tobacco Use Types Packs/Day Years [...] Description 05/21/2025 1:50 PM EST Office Visit [facility]YN [address] [facility] [address] [place] [id number] Toro Valdez MD [address] [facility] [address] [place] [address] documented as of this encounter Visit Diagnoses Not on filedocumented in this encounter Additional Health Concerns Infection Onset Date Last Indicated Resolved Time COVID Screen (preop/placement) 10/20/2021 10/24/2021 10/24/2021 11:20 PM EDT documented as of this encounter Care Teams Digital Marketing Apprentice Relationship Specialty Start Date End Date Vignesh Strickland DO [address] [place] [id number] PCP - General Internal Medicine 02/04/24 documented as of this encounter
--- OUTSIDE RECORDS SUMMARY | 2025-01-23 07:54 | XMS_ITS | Clinical Summary ---
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 No 04/05/2023 [place] Depression Scale Answer Date Recorded Retired [place] Depression Score 5 04/05/2023 Retired EPD Scale: [...] GED or equivalent No 04/05/2023 Preferred Language Peruvian 04/05/2023 PHQ-2 Answer Date Recorded Retired PHQ-9: [...] Description 05/21/2025 1:50 PM EST Office Visit [facility]BG[facility] [address] [place] [phone] Osiris Alicia MD [address] [facility] [address] [place] [address] Health Maintenance Due Date Last Done Comments [...] this topic Medical Devices Implanted Type Area Systems Integration Analyst Device Identifier Shelf Expiration Date Model / [...] Lab Report [facility] [address] [place] [address] or [phone] Willi Chowdhury M.D., Dramatic Arts Historian PATIENT NAME [facility]. [id number] AGE SEX SSN CLIENT REF # OSIRIS ALICIA MD 27 1995 F [id number] OSIRIS ALICIA MD REQUESTING Norm. ATTENDING M.D. COPY TO. 170Philippe CHIN [facility] [address] [place] [address] DATE COLLECTED DATE RECEIVED DATE REPORTED 05/18/2023 [...] 1 CLINICAL HISTORY: Screening for cervical cancer PROOFREADER: GEETA GARCIA (ASCP) CPT CODES: [id number] 05/21/2023 4:41 PM EST [facility] ThinPrep Vial Collection / Unknown 05/18/2023 1:43 PM EST 05/18/2023 1:43 PM EST Osiris Alicia MD PATHOLOGY/CYTOLOGY ORDERAB LES Final Result [facility]
[address] [place] [address], [place] [phone] * Hepatitis C Antibody (09/04/2022 11:32 AM EDT) Hepatitis C Ab Non-Reacti ve Non-Reacti ve 09/04/2022 8:26 PM EDT [facility] Blood Venipuncture / Unknown 09/04/2022 11:32 AM EDT 09/04/2022 11:33 AM EDT Narrative [facility] - 09/04/2022 8:26 PM EDT Results may be falsely decreased if patient taking Biotin. us Osiris Alicia MD LAB BLOOD ORDERABLES Final Result [facility]
[address] [place] [address], [place] [phone] from Last 3 Months or Most Recently [...] or is breathing): Full Support Care Teams Scaffold Builder Relationship Specialty Start Date End Date Vignesh Strickland DO [address] [place] [address] PCP - General Internal Medicine 02/04/24
== END 2025-01-23 23:59 | disposition home or self-care (01) ==
LOC: LAB 07:52
PROVIDERS: PCP Internal Medicine; Visit Provider Student in an Organized Health Care Education/Training Program
DX: E28.2 Polycystic ovarian syndrome (principal)
CPT/HCPCS: 82533

== ENCOUNTER 2025-02-04 11:29 | Outpatient (CLI) | payer OTHER, SELFPAY | END 2025-02-04 23:59 | disposition home or self-care (01) | LOC: LAB 11:29 | PROVIDERS: PCP Internal Medicine; Visit Provider Student in an Organized Health Care Education/Training Program | DX: E28.2 Polycystic ovarian syndrome (principal) | CPT/HCPCS: 36415; 83520; 84445 ==